=== PATIENT | female | born 1945 | race Caucasian/White ===

== ENCOUNTER 2021-09-13 11:18 | Outpatient (CLI) | payer MEDICARE, SELFPAY ==
[2021-09-13 11:49] LABS: Hematocrit 34.9 % (37.0-47.0); Hemoglobin 10.8 g/dL (12.0-15.0); Mean Corpuscular HGB Conc 30.9 g/dl (32-36); Mean Corpuscular Hemoglobin 32.1 pg (26-34); Mean Corpuscular Volume 103.9 fl (80-100); Mean Platelet Volume 10.6 fl (7.4-10.4); Platelet Count Result 321 k/mm3 (150-375); Red Blood Count 3.36 M/mm3 (4.2-5.4); Red Cell Distribution Width 14.2 % (11.5-14.5); White Blood Count 9.1 K/mm3 (4.5-10.0)
[2021-09-13 12:05] LABS: Alanine Aminotransferase 16 U/L (6-35); Albumin Level 4.1 g/dL (3.5-5.1); Alkaline Phosphatase 53 U/L (38-126); Anion Gap 10 mmol/L (8-16); Aspartate Amino Transferase 25 U/L (14-36); Bilirubin,Total 0.5 mg/dL (0.2-1.3); Blood Urea Nitrogen 26 mg/dL (7-17); CRP 0.9 mg/dL (<1.0); Calcium 8.6 mg/dL (8.4-10.2); Carbon Dioxide 24 mmol/L (22-30); Chloride 101 mmol/L (98-107); Estimated Glomerular Filt Rate > 60; Glucose 106 mg/dL (65-110); Potassium 3.9 mmol/L (3.4-5.0); Sodium 135 mmol/L (137-145)
[2021-09-13 12:21] LABS: Erythrocyte Sedimentation Rate 125 mm/hr (0-20)
== END 2021-09-13 11:19 | disposition home or self-care (01) ==
PROVIDERS: PCP Internal Medicine; Visit Provider Internal Medicine
DX: M06.9 Rheumatoid arthritis, unspecified (principal); M06.09 Rheumatoid arthritis without rheumatoid factor, multiple sites; M19.90 Unspecified osteoarthritis, unspecified site
CPT/HCPCS: 36415; 80053; 85027; 85652; 86140; 99212; G0463

== ENCOUNTER 2021-09-26 12:28 | Outpatient (CLI) | payer MEDICARE, SELFPAY ==
[2021-09-26 14:51] LABS: IFOB Positive Control Positive; Immunochemical Fecal Occult Bl Positive (N)
== END 2021-09-26 12:29 | disposition home or self-care (01) ==
LOC: ANHLAB 12:30
PROVIDERS: PCP Internal Medicine; Visit Provider Internal Medicine
DX: D64.9 Anemia, unspecified (principal)
CPT/HCPCS: 82274

== ENCOUNTER 2022-01-03 11:28 | Outpatient (CLI) | payer MEDICARE, SELFPAY ==
[2022-01-03 12:12] LABS: Hematocrit 31.9 % (37.0-47.0); Hemoglobin 9.9 g/dL (12.0-15.0); Mean Corpuscular Hemoglobin 30.1 pg (26-34); Mean Platelet Volume 10.7 fl (7.4-10.4); Platelet Count Result 190 k/mm3 (150-375); Red Blood Count 3.29 M/mm3 (4.2-5.4); Red Cell Distribution Width 15.8 % (11.5-14.5); White Blood Count 6.6 K/mm3 (4.5-10.0)
[2022-01-03 12:31] LABS: Appearance Urine Clear (Clear); Bilirubin Urine Negative (Negative); Blood Urine 1+ (Negative); Color Urine Yellow (Yellow); Glucose Urine UA Negative (Negative); Ketones Urine Negative (Negative); Leukocyte Esterase Ur 1+ LEU/UL (Negative); Nitrate Urine Negative (Negative); Protein Urine Negative (Negative); Urobilinogen Urine 0.2 mg/dL (<2.0); pH Urine 5.5 (5.0-9.0)
[2022-01-03 12:35] LABS: Alanine Aminotransferase 28 U/L (6-35); Alkaline Phosphatase 58 U/L (38-126); Anion Gap 5 mmol/L (8-16); Aspartate Amino Transferase 36 U/L (14-36); Bilirubin,Total 0.3 mg/dL (0.2-1.3); Blood Urea Nitrogen 19 mg/dL (7-17); Calcium 8.8 mg/dL (8.4-10.2); Carbon Dioxide 25 mmol/L (22-30); Chloride 105 mmol/L (98-107); Estimated Glomerular Filt Rate > 60; Glucose 79 mg/dL (65-110); Potassium 4.3 mmol/L (3.4-5.0); Sodium 135 mmol/L (137-145)
[2022-01-03 12:37] LABS: Bacteria Urine Trace /hpf; Renal Epithelial Cells Urine Rare /hpf (None Seen); Squamous Epithelial Cell Urine Few /hpf (Few)
[2022-01-03 12:38] LABS: Add Urine Microscopic? YES
[2022-01-03 12:42] LABS: CRP 1.1 mg/dL (<1.0)
[2022-01-03 16:06] LABS: Erythrocyte Sedimentation Rate 91 mm/hr (0-20)
== END 2022-01-03 11:29 | disposition home or self-care (01) ==
PROVIDERS: PCP Internal Medicine; Visit Provider Internal Medicine
DX: M06.09 Rheumatoid arthritis without rheumatoid factor, multiple sites (principal); M06.9 Rheumatoid arthritis, unspecified; M19.90 Unspecified osteoarthritis, unspecified site
CPT/HCPCS: 36415; 80053; 81001; 85027; 85652; 86140; 87086; 96365; 96366; 99212; Q5104; A9270; G0463; J7050

== ENCOUNTER 2022-04-02 09:49 | Outpatient (CLI) | payer MEDICARE, SELFPAY ==
--- NOTE | ~2022-04-02 | XR_ITS ---
EXAMINATION: XR chest 2V 04/02/2022 10:17 INDICATION: Elevated sedimentation rate PROCEDURE: 2 view chest COMPARISON: No prior studies for comparison. FINDINGS: The lungs are clear. The cardiomediastinal silhouette is within normal limits. There are no pleural effusions. There is no pneumothorax suspected. 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 Mild thoracic spondylosis. IMPRESSION: 1: NO ACUTE CARDIOPULMONARY DISEASE. Reviewed, dictated and finalized at location B. [facility]
[2022-04-02 10:57] LABS: Hematocrit 28.9 % (37.0-47.0); Mean Corpuscular HGB Conc 31.1 g/dl (32-36); Mean Corpuscular Hemoglobin 30.4 pg (26-34); Mean Corpuscular Volume 97.6 fl (80-100); Mean Platelet Volume 11.4 fl (7.4-10.4); Platelet Count Result 170 k/mm3 (150-375); Red Blood Count 2.96 M/mm3 (4.2-5.4); Red Cell Distribution Width 16.3 % (11.5-14.5); White Blood Count 5.8 K/mm3 (4.5-10.0)
[2022-04-02 11:09] LABS: Alanine Aminotransferase 23 U/L (6-35); Albumin Level 3.9 g/dL (3.5-5.1); Alkaline Phosphatase 68 U/L (38-126); Anion Gap 4 mmol/L (8-16); Aspartate Amino Transferase 29 U/L (14-36); Bilirubin,Total 0.3 mg/dL (0.2-1.3); Blood Urea Nitrogen 20 mg/dL (7-17); CRP 0.7 mg/dL (<1.0); Calcium 8.3 mg/dL (8.4-10.2); Carbon Dioxide 25 mmol/L (22-30); Chloride 107 mmol/L (98-107); Estimated Glomerular Filt Rate > 60; Glucose 99 mg/dL (65-110); Potassium 3.9 mmol/L (3.4-5.0); Sodium 136 mmol/L (137-145)
[2022-04-02 11:19] LABS: Mucus Urine Few /lpf; Squamous Epithelial Cell Urine Many /hpf (Few)
[2022-04-02 11:26] LABS: Appearance Urine Clear (Clear); Bilirubin Urine 1+ (Negative); Blood Urine 1+ (Negative); Color Urine Yellow (Yellow); Glucose Urine UA Negative (Negative); Ketones Urine Trace mg/dL (Negative); Leukocyte Esterase Ur Trace LEU/UL (Negative); Nitrate Urine Negative (Negative); Protein Urine Trace mg/dL (Negative); Urobilinogen Urine 0.2 mg/dL (<2.0); pH Urine 5.5 (5.0-9.0)
[2022-04-02 11:27] LABS: Add Urine Microscopic? YES
[2022-04-02 11:40] LABS: Erythrocyte Sedimentation Rate > 140 mm/hr (0-20)
== END 2022-04-02 09:50 | disposition home or self-care (01) ==
PROVIDERS: PCP Family Medicine; Visit Provider Internal Medicine
DX: M19.90 Unspecified osteoarthritis, unspecified site (principal); R70.0 Elevated erythrocyte sedimentation rate; R31.9 Hematuria, unspecified
CPT/HCPCS: 36415; 71046; 80053; 81001; 85027; 85652; 86140; 99212; G0463

== ENCOUNTER 2022-04-20 08:28 | Outpatient (CLI) | payer MEDICARE, SELFPAY ==
[2022-04-20 08:56] LABS: Basophils Percent Auto 0.5 % (0.2-1.2); Eosinophils Absolute Auto 0.1 K/mm3 (0-0.3); Eosinophils Percent Auto 2.4 % (0-4.4); Hematocrit 30.5 % (37.0-47.0); Hemoglobin 9.4 g/dL (12.0-15.0); Immature Granulocyte Absolute 0.03 K/mm3 (0.00-0.031); Immature Granulocyte Percent A 0.5 % (0-0.5); Lymphocytes Absolute Auto 0.86 K/mm3 (0.9-3.2); Lymphocytes Percent Auto 15.7 % (18.3-44.2); Mean Corpuscular HGB Conc 30.8 g/dl (32-36); Mean Corpuscular Hemoglobin 29.4 pg (26-34); Mean Corpuscular Volume 95.3 fl (80-100); Mean Platelet Volume 10.9 fl (7.4-10.4); Monocytes Absolute Auto 0.8 K/mm3 (0.1-0.6); Neutrophils Absolute Auto 3.7 K/mm3 (1.3-6.7); Neutrophils Percent Auto 66.9 % (45.5-73.1); Platelet Count Result 209 k/mm3 (150-375); Red Cell Distribution Width 15.5 % (11.5-14.5); White Blood Count 5.5 K/mm3 (4.5-10.0)
[2022-04-20 09:11] LABS: Alanine Aminotransferase 25 U/L (6-35); Albumin Level 3.7 g/dL (3.5-5.1); Alkaline Phosphatase 66 U/L (38-126); Anion Gap 5 mmol/L (8-16); Aspartate Amino Transferase 30 U/L (14-36); Bilirubin,Total 0.5 mg/dL (0.2-1.3); Blood Urea Nitrogen 15 mg/dL (7-17); CRP 5.9 mg/dL (<1.0); Calcium 8.1 mg/dL (8.4-10.2); Carbon Dioxide 29 mmol/L (22-30); Chloride 106 mmol/L (98-107); Estimated Glomerular Filt Rate > 60; Glucose 91 mg/dL (65-110); Potassium 3.8 mmol/L (3.4-5.0); Sodium 140 mmol/L (137-145)
[2022-04-20 09:23] LABS: Appearance Urine Clear (Clear); Bacteria Urine None Seen /hpf; Bilirubin Urine Negative (Negative); Blood Urine 1+ (Negative); Color Urine Yellow (Yellow); Glucose Urine UA Negative (Negative); Ketones Urine Negative (Negative); Leukocyte Esterase Ur Negative LEU/UL (Negative); Nitrate Urine Negative (Negative); Non Pathogenic Casts 0-2; Protein Urine Trace mg/dL (Negative); Specific Grav Ur 1.017 (1.001-1.035); Squamous Epithelial Cell Urine Few /hpf (Few); Urobilinogen Urine 0.2 mg/dL (<2.0); WBC Urine 0-5 /hpf
[2022-04-20 10:34] LABS: Add Urine Microscopic? YES
[2022-04-20 11:41] LABS: Erythrocyte Sedimentation Rate > 140 mm/hr (0-20)
== END 2022-04-20 08:29 | disposition home or self-care (01) ==
PROVIDERS: PCP Family Medicine; Visit Provider Internal Medicine
DX: M19.90 Unspecified osteoarthritis, unspecified site (principal); M06.09 Rheumatoid arthritis without rheumatoid factor, multiple sites
CPT/HCPCS: 36415; 80053; 81001; 85025; 85652; 86140

== ENCOUNTER 2022-05-14 11:34 | Outpatient (CLI) | payer MEDICARE, SELFPAY ==
[2022-05-14 12:26] LABS: Basophils Percent Auto 0.6 % (0.2-1.2); Eosinophils Absolute Auto 0.1 K/mm3 (0-0.3); Eosinophils Percent Auto 1.7 % (0-4.4); Hematocrit 31.9 % (37.0-47.0); Hemoglobin 9.5 g/dL (12.0-15.0); Immature Granulocyte Absolute 0.03 K/mm3 (0.00-0.031); Immature Granulocyte Percent A 0.6 % (0-0.5); Lymphocytes Absolute Auto 0.93 K/mm3 (0.9-3.2); Mean Corpuscular HGB Conc 29.8 g/dl (32-36); Mean Corpuscular Volume 94.1 fl (80-100); Mean Platelet Volume 10.3 fl (7.4-10.4); Monocytes Absolute Auto 0.5 K/mm3 (0.1-0.6); Monocytes Percent Auto 10.2 % (2.6-8.5); Neutrophils Absolute Auto 3.6 K/mm3 (1.3-6.7); Neutrophils Percent Auto 68.9 % (45.5-73.1); Platelet Count Result 306 k/mm3 (150-375); Red Blood Count 3.39 M/mm3 (4.2-5.4); Red Cell Distribution Width 15.8 % (11.5-14.5); White Blood Count 5.2 K/mm3 (4.5-10.0)
[2022-05-14 12:33] LABS: Appearance Urine Clear (Clear); Bacteria Urine None Seen /hpf; Bilirubin Urine Negative (Negative); Blood Urine 1+ (Negative); Color Urine Yellow (Yellow); Glucose Urine UA Negative (Negative); Ketones Urine Negative (Negative); Leukocyte Esterase Ur Trace LEU/UL (Negative); Nitrate Urine Negative (Negative); Non Pathogenic Casts 0-2; Protein Urine Trace mg/dL (Negative); Squamous Epithelial Cell Urine Occasional /hpf (Few); Urobilinogen Urine 0.2 mg/dL (<2.0); WBC Urine 0-5 /hpf
[2022-05-14 12:45] LABS: Alanine Aminotransferase 33 U/L (6-35); Albumin Level 3.6 g/dL (3.5-5.1); Alkaline Phosphatase 87 U/L (38-126); Anion Gap 4 mmol/L (8-16); Aspartate Amino Transferase 43 U/L (14-36); Bilirubin,Total 0.5 mg/dL (0.2-1.3); Blood Urea Nitrogen 23 mg/dL (7-17); Calcium 8.6 mg/dL (8.4-10.2); Carbon Dioxide 30 mmol/L (22-30); Chloride 101 mmol/L (98-107); Estimated Glomerular Filt Rate > 60; Glucose 93 mg/dL (65-110); Potassium 4.4 mmol/L (3.4-5.0); Sodium 135 mmol/L (137-145)
[2022-05-14 12:59] LABS: Hypochromasia 1+ (NORMAL)
[2022-05-14 13:01] LABS: Platelet Estimate Adequate (Adequate); Schistocytes None Seen (NORMAL)
[2022-05-14 13:43] LABS: Erythrocyte Sedimentation Rate > 140 mm/hr (0-20)
[2022-05-14 13:49] LABS: Add Urine Microscopic? YES
== END 2022-05-14 11:35 | disposition home or self-care (01) ==
LOC: ANHLAB 11:35
PROVIDERS: PCP Family Medicine; Visit Provider Internal Medicine
DX: M06.9 Rheumatoid arthritis, unspecified (principal); Z79.899 Other long term (current) drug therapy; R31.9 Hematuria, unspecified
CPT/HCPCS: 36415; 80053; 81001; 85025; 85652; 86140

== ENCOUNTER 2022-12-21 10:18 | Outpatient (CLI) | payer MEDICARE, SELFPAY ==
[2022-12-21 11:17] LABS: Hematocrit 37.2 % (37.0-47.0); Mean Corpuscular HGB Conc 29.6 g/dl (32-36); Mean Corpuscular Hemoglobin 31.2 pg (26-34); Mean Corpuscular Volume 105.4 fl (80-100); Mean Platelet Volume 10.4 fl (7.4-10.4); Platelet Count Result 246 k/mm3 (150-375); Red Blood Count 3.53 M/mm3 (4.2-5.4); Red Cell Distribution Width 13.8 % (11.5-14.5); White Blood Count 5.1 K/mm3 (4.5-10.0)
[2022-12-21 11:37] LABS: Alanine Aminotransferase 29 U/L (6-35); Albumin Level 4.4 g/dL (3.5-5.1); Alkaline Phosphatase 73 U/L (38-126); Anion Gap 8 mmol/L (8-16); Aspartate Amino Transferase 36 U/L (14-36); Bilirubin,Total 0.5 mg/dL (0.2-1.3); Blood Urea Nitrogen 14 mg/dL (7-17); CRP < 0.5 mg/dL (<1.0); Calcium 9.2 mg/dL (8.4-10.2); Carbon Dioxide 28 mmol/L (22-30); Chloride 105 mmol/L (98-107); Estimated Glomerular Filt Rate > 60; Glucose 77 mg/dL (65-110); Sodium 141 mmol/L (137-145)
[2022-12-21 12:38] LABS: Appearance Urine Clear (Clear); Bacteria Urine None Seen /hpf; Bilirubin Urine Negative (Negative); Blood Urine Negative (Negative); Color Urine Yellow (Yellow); Glucose Urine UA Negative (Negative); Ketones Urine Negative (Negative); Leukocyte Esterase Ur Trace LEU/UL (Negative); Nitrate Urine Negative (Negative); Non Pathogenic Casts 0-2; Protein Urine Negative (Negative); RBC Urine 0-2 /hpf (0-2); Specific Grav Ur 1.017 (1.001-1.035); Squamous Epithelial Cell Urine Few /hpf (Few); Urobilinogen Urine 0.2 mg/dL (<2.0); WBC Urine 0-5 /hpf; pH Urine 5.5 (5.0-9.0)
[2022-12-21 12:43] LABS: Add Urine Microscopic? YES
[2022-12-21 13:15] LABS: Erythrocyte Sedimentation Rate 77 mm/hr (0-20)
== END 2022-12-21 10:19 | disposition home or self-care (01) ==
PROVIDERS: PCP Family Medicine; Visit Provider Internal Medicine
DX: M06.09 Rheumatoid arthritis without rheumatoid factor, multiple sites (principal); M19.90 Unspecified osteoarthritis, unspecified site
CPT/HCPCS: 36415; 80053; 81001; 85027; 85652; 86140

== ENCOUNTER 2023-01-02 09:40 | Outpatient (CLI) | payer MEDICARE, SELFPAY ==
[2023-01-02 10:50] LABS: Eosinophils Absolute Auto 0.2 K/mm3 (0-0.3); Eosinophils Percent Auto 5.6 % (0-4.4); Hematocrit 37.5 % (37.0-47.0); Hemoglobin 11.2 g/dL (12.0-15.0); Immature Granulocyte Absolute 0.02 K/mm3 (0.00-0.031); Immature Granulocyte Percent A 0.5 % (0-0.5); Lymphocytes Absolute Auto 1.15 K/mm3 (0.9-3.2); Mean Corpuscular HGB Conc 29.9 g/dl (32-36); Mean Corpuscular Volume 103.9 fl (80-100); Mean Platelet Volume 11.5 fl (7.4-10.4); Monocytes Absolute Auto 0.5 K/mm3 (0.1-0.6); Monocytes Percent Auto 13.1 % (2.6-8.5); Neutrophils Absolute Auto 2.1 K/mm3 (1.3-6.7); Neutrophils Percent Auto 51.8 % (45.5-73.1); Platelet Count Result 149 k/mm3 (150-375); Red Blood Count 3.61 M/mm3 (4.2-5.4); Red Cell Distribution Width 13.2 % (11.5-14.5); White Blood Count 4.1 K/mm3 (4.5-10.0)
[2023-01-02 11:07] LABS: Anion Gap 12 mmol/L (8-16); Blood Urea Nitrogen 22 mg/dL (7-17); Calcium 9.3 mg/dL (8.4-10.2); Carbon Dioxide 21 mmol/L (22-30); Chloride 107 mmol/L (98-107); Estimated Glomerular Filt Rate > 60; Glucose 106 mg/dL (65-110); Potassium 3.9 mmol/L (3.4-5.0); Sodium 140 mmol/L (137-145)
[2023-01-02 12:10] LABS: Folic Acid > 20.0 ng/mL (2.76->20); Vitamin B12 > 1000.0 pg/mL (239-931)
== END 2023-01-02 09:41 | disposition home or self-care (01) ==
PROVIDERS: PCP Family Medicine; Visit Provider Internal Medicine Hematology & Oncology
DX: D64.9 Anemia, unspecified (principal)
CPT/HCPCS: 36415; 80048; 82607; 82746; 85025

== ENCOUNTER 2023-08-29 10:10 | Outpatient (CLI) | payer MEDICARE, SELFPAY ==
[2023-08-29 10:46] LABS: Basophils Absolute Auto 0.1 K/mm3 (0.0-0.1); Basophils Percent Auto 0.8 % (0.2-1.2); Eosinophils Absolute Auto 0.5 K/mm3 (0-0.3); Eosinophils Percent Auto 7.6 % (0-4.4); Hematocrit 38.4 % (37.0-47.0); Hemoglobin 12.4 g/dL (12.0-15.0); Immature Granulocyte Absolute 0.02 K/mm3 (0.00-0.031); Immature Granulocyte Percent A 0.3 % (0-0.5); Lymphocytes Absolute Auto 1.46 K/mm3 (0.9-3.2); Lymphocytes Percent Auto 24.5 % (18.3-44.2); Mean Corpuscular HGB Conc 32.3 g/dl (32-36); Mean Corpuscular Hemoglobin 31.8 pg (26-34); Mean Corpuscular Volume 98.5 fl (80-100); Mean Platelet Volume 11.3 fl (7.4-10.4); Monocytes Absolute Auto 0.6 K/mm3 (0.1-0.6); Monocytes Percent Auto 9.9 % (2.6-8.5); Neutrophils Absolute Auto 3.4 K/mm3 (1.3-6.7); Neutrophils Percent Auto 56.9 % (45.5-73.1); Platelet Count Result 171 k/mm3 (150-375); Red Cell Distribution Width 12.4 % (11.5-14.5)
[2023-08-29 11:02] LABS: Transferrin 237 mg/dL (206-381)
[2023-08-29 11:49] LABS: Iron 81 ug/dL (37-170); Percent Iron Saturation 26 % (20-50)
[2023-08-29 12:13] LABS: Folic Acid > 20.0 ng/mL (2.76->20); Vitamin B12 > 1000.0 pg/mL (239-931)
[2023-09-02 06:44] LABS: Methylmalonic Acid 136 nmol/L (69-390)
== END 2023-08-29 10:11 | disposition home or self-care (01) ==
LOC: ANHLAB 10:16
PROVIDERS: PCP Family Medicine; Visit Provider Internal Medicine Hematology & Oncology
DX: D64.9 Anemia, unspecified (principal)
CPT/HCPCS: 36415; 82607; 82728; 82746; 83540; 83550; 83921; 84466; 85025

== ENCOUNTER 2024-03-13 09:17 | Outpatient (CLI) | payer MEDICARE, SELFPAY ==
--- OUTSIDE RECORDS SUMMARY | 2024-03-13 09:36 | XMS_ITS | Encounter Summary ---
Author Organization [facility] Address [address] [place] [address] Care Team Providers Care Speech And Language Clinician Name Role Phone Mary Acuna DO Primary Care Provider [phone] Reason for Visit * Reason Onset Date Comments labs for appt 03/13/2024 Encounter Details Date Type Department Care Team (Late Contact Info) Description 03/13/2024 Telephone [facility] Oncology and Hematology - Tomás [address] [address] [place] [address] Blas Merino MD [address] [place] [address] labs for appt Social History Tobacco Use Types Packs/Day Years Used Date Smoking Tobacco: Never Alcohol Use Standard Drinks/Week Comments Yes 0 (1 standard drink = 0.6 oz pur e alcohol) rare Comments Unknown Sex and Gender Information Value Date Recorded Sex Assigned at Not on file Legal Sex Female 9:46 AM CDT Gender Identity Not on file Sexual Orientation Not on file documented as of this encounter Miscellaneous Notes * Telephone Encounter - Magali Pickett - 03/13/2024 9:17 AM CST LVM for patient. She has a follow up appointment on Saturday and I do not see that she has got her labs done yet. We would need those completed at lease the day prior to the appointment. SSIONS NURSE documented in this encounter Plan of Treatment Upcoming Encounters Date Type Department Care Team (Late Contact Info) Description 03/16/2024 11:45 AM ADMISSIONS NURSE Office Visit [facility] Oncology and Hematology - Tomás [address] [place] [address] Blas Merino MD [address] [place] [address] documented as of this encounter Visit Diagnoses Not on filedocumented in this encounter Care Teams Speech And Language Clinician Relationship Specialty Start Date End Date Mary Acuna DO [address] [place] [address] PCP - General Family Practice 08/16/22 documented as of this encounter
--- OUTSIDE RECORDS SUMMARY | 2024-03-13 09:36 | XMS_ITS | Encounter Summary ---
Author Organization [facility] Address [address] [place] [address] Phone Care Team Providers Care Aircraft Log Clerk Name Role Phone Rahul Mazariegos MD Primary Care Provider [phone] Mary Acuna NP Primary Care Provider [phone] Encounter Details Date Type Department Care Team (Late st Contact Info) Description 08/31/2021 Orders Only [facility] [address] [place] [address] Scanning, Provider Social History Tobacco Use Types Packs/Day Years Used Date Smoking Tobacco: Never Smokeless Tobacco: Never Alcohol Use Standard Drinks/Week Comments Yes 0 (1 standard drink = 0.6 oz pur e alcohol) AUDIT-C Answer Date Recorded Q1: How often do you have a drink containing alc ohol? Never 08/23/2020 Average Number of Drinks Not on file 021 Q3: How often do you have si x or more drinks on one occasion? Never 08/23/2020 PHQ-2 Answer Date Recorded PHQ-2 Total Score (If total score is 3 or more points, staff should administer the PHQ-9) 0 08/24/2021 Comments No Sex and Gender Information Value Date Recorded Sex Assigned at Not on file Legal Sex Female 3:45 PM CDT Gender Identity Female 09/30/2019 10:54 AM CDT Sexual Orientation Straight 09/30/2019 10 :54 AM CDT documented as of this encounter Plan of Treatment Not on file documented as of this encounter Procedures Procedure Name Priority Date/Time Associated Diagnosis Comments SCAN - LABS 08/31/2021 documented in this encounter Results * SCAN - LABS (08/31/2021) us Provider Scanning Final Result documented in this encounter Visit Diagnoses Not on filedocumented in this encounter Additional Health Concerns Infection Onset Date Last Indicated Resolved Time COVID: Suspected 05/03/2022 05/03/2022 05/03/2022 11:49 AM CDT documented as of this encounter Care Teams Aircraft Log Clerk Relationship Specialty Start Date End Date Rahul Mazariegos MD PCP - General Family Medicine 08/23/20 04/23/22 Mary Acuna NP [address] [place] [id number] PCP - General Family Practice 04/24/22 documented as of this encounter
--- OUTSIDE RECORDS SUMMARY | 2024-03-13 09:36 | XMS_ITS | Clinical Summary ---
Author Organization [facility] Address [address] [place] [address]. 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 Gender Identity Not on file Sexual Orientation Not on file Plan of Treatment Health Maintenance Due Date Last Done Comments Hepatitis C 02/18/1962 DTaP, Tdap and Td Vaccines ( 1 - Tdap) 02/18/1963 Zoster Vaccines (1 of 2) 02/18/1994 Dexa Scan (General) 02/18/2009 RSV Immunization or 60+ Years (1 - 1-dose 75+ series) 02/18/2019 COVID-19 Vaccine ( - 2023-2 5 season) 2023 07/13/2021, 04/15/2020, 03/14/2020 Influenza Adult (#1) 2023 11/11/2021, 12/03/2019, 01/01/2019 Pneumococcal Vaccine: 65+ Years Completed 08/23/2020, 08/18/2019 Meningococcal B Vaccine Aged Out No l onger eligible based on patient's age to complete this topic Meningococcal Vaccine Aged Out No peace gordon eligible based on patient's age to complete this topic RSV Immunizations Under 20 Months Aged Out No longer eligible b ased on patient's age to complete this topic
--- OUTSIDE RECORDS SUMMARY | 2024-03-13 09:36 | XMS_ITS | Referral Summary ---
[facility] Address [address] [place] [address] Care Team Providers Care Wheat Grower Name Role Phone Mary Acuna NP Primary Care Provider [phone] Encounters Date Type Department Care Team Description 12/16/2023 1:50 PM METAL BASE BLOCKER - 12/16/2023 11:59 PM METAL BASE BLOCKER Hospital Encounter [facility] [facility] [address] [place] [id number] Abnormal mammogram Discharge Disposition: Discharge to home or self care from Last 3 Months Allergies Active Allergy Reactions Criticality Noted Date Comments Codeine Itching,Stomach upset Low 08/31/2019 Medications ferrous sulfate 325 mg (65 mg of elemental iron) tabletIndications:Iron Deficiency Anemia Take 1 tablet (325 mg total) by mouth daily with breakfast 019 Active Additional Information Patient taking differently: 130 mg of elemental ironoral Daily with breakfast, Indications: Iron Deficiency Anemia, Reported on 05/30/2022 ibandronate (BONIVA) 150 mg tablet Take 1 tablet (150 mg total) by mouth every 30 (thirty) days Take in AM with glass of water prior to food, don't lie down for 30 minutes. Active pyridoxine (VITAMIN B-6) 100 mg tablet Take 1 tablet (100 mg total) by mouth daily Active acetaminophen ER (TYLENOL) 650 mg 8 hr tablet Take 2 tablets (1,300 mg total) by mouth daily Active cholecalciferol (VITAMIN D-3) 25 mcg (1,000 unit) tablet Take 1 tablet (1,000 Units total) by mouth daily Active aspirin 81 mg chewable tablet Take 1 tablet (81 mg total) by mouth daily Active folic acid (FOLVITE) 1 mg tablet Take 1 tablet (1,000 mcg total) by mouth daily 022 Active leflunomide (ARAVA) 20 mg tabletIndications:Rheum atoid Arthritis Take 1 tablet (20 mg total) by mouth daily Active cyanocobalamin (Vitamin B-12) 1,000 mcg tabletIndications:Preve ntion of Vitamin B12 Deficiency Take 1 tablet (1,000 mcg total) by mouth daily Active lidocaine (LIDODERM) 5 %Indications:Pain Place 1 patch on the skin daily Use patch for 12 hours on, 12 hours off. Discard after each use 7 patch 024 Active losartan (COZAAR) 25 mg tabletIndications:Mixed dyslipidemia,Coronary artery disease involving [place] coronary artery of [place] heart without angina pectoris,Essential hypertension Take 1 tablet (25 mg total) by mouth daily 90 tablet 2 024 Active spironolactone (ALDACTONE) 25 mg tablet TAKE 1 TABLET BY MOUTH DAILY 90 tablet 3 024 Active metoprolol XL (TOPROL-XL) 25 mg extended release tablet Take 1 tablet (25 mg total) by mouth daily 90 tablet [address] (PROTONIX) 40 mg EC tablet TAKE 1 TABLET BY MOUTH DAILY 90 tablet 3 024 Active Xarelto 20 mg tablet TAKE 1 TABLET BY MOUTH DAILY 90 tablet 3 024 Active atorvastatin (LIPITOR) 40 mg tabletIndications:Pure hypercholesterolemia TAKE 1 TABLET BY MOUTH DAILY 90 tablet 3 024 Active Active Problems Problem Noted Date Diagnosed Date Chronic kidney disease, stage 2 (mild) 3 Assessment & Plan (10/21/2023 11:38 AM CDT): Chronic, stable Previously seen by nephrology, released from care Will monitor for stability Assessment & Plan (11/02/2022 12:07 PM CDT): Chronic, stable Encouraged to follow-up with nephrology as recommended Weakness of right lower extremity 09/14/2022 Assessment & Plan (10/21/2023 11:30 AM CDT): Chronic, improved with therapy, released 10/19/22, doing home exercises Encouraged to continue home exercises Assessment & Plan (11/02/2022 12:04 PM CDT): Acute, improved with therapy, released 10/19/22, doing home exercises Encouraged to continue home exercises Assessment & Plan (09/14/2022 3:25 PM CDT): New diagnosis Encouraged to continue physical therapy for strengthening History of non-ST elevation myocardial infarctio n (NSTEMI) 05/30/2022 Assessment & Plan (10/21/2023 11:36 AM CDT): Encouraged to follow up with cardiology as recommended History of colon polyps 04/27/2022 Assessment & Plan (04/27/2022 10:29 AM CDT): Referral made for consideration of screening colonoscopy due to history of polyps and anemia. Encounter for screening mamm ogram for malignant neoplasm of breast 04/27/2022 Assessment & Plan (04/27/2022 10:29 AM CDT): Ordered screening mammogram. Anemia, unspecified 04/27/2022 Assessment & Plan (10/21/2023 11:39 AM CDT): Chronic, stable, on iron supplement Continued on ferrous sulfate and folic acid Assessment & Plan (11/02/2022 12:08 PM CDT): Chronic, with improvement in hemoglobin/hematocrit Continued on ferrous sulfate and folic acid Assessment & Plan (04/27/2022 10:52 AM CDT): Chronic, improved Hgb/Hct compared to 4 months prior, on iron supplement, 2 daily-continued on iron supplement. Ordered iron profile, ferritin level, B12 level, and folate level. Coronary artery disease invo lving [place] coronary artery of [place] heart without angina pectoris 04/26/2022 Assessment & Plan (10/21/2023 11:38 AM CDT): Chronic, stability unknown Continued on aspirin, metoprolol, Xarelto, atorvastatin, and spironolactone per Cardiology Assessment & Plan (11/02/2022 12:07 PM CDT): Chronic, stability unknown Continued on aspirin, metoprolol, Xarelto, atorvastatin, and spironolactone per Cardiology Atrial fibrillation with rap id ventricular response ([facility]) 02/18/2020 Assessment & Plan (10/21/2023 11:39 AM CDT): Chronic, stability unknown Continued on metoprolol and Xarelto per Cardiology Assessment & Plan (11/02/2022 12:08 PM CDT): Chronic, stability unknown Continued on metoprolol and Xarelto per Cardiology Assessment & Plan (02/18/2020 11:15 AM METAL BASE BLOCKER): Overall Condition Stable and Well-controlled. Treatment: Continue Present Management Follow up in 6 months Gastroesophageal reflux disease with stricture 0 02/18/2020 Assessment & Plan (10/21/2023 11:36 AM CDT): Chronic, stable, controlled with medication Continued pantoprazole Assessment & Plan (11/02/2022 12:06 PM CDT): Chronic, stable, controlled with medication Continued pantoprazole Assessment & Plan (02/18/2020 11:15 AM METAL BASE BLOCKER): Overall Condition Stable and Well-controlled. Treatment: Continue Present Management Follow up in 6 months Mixed dyslipidemia 02/18/2020 Assessment & Plan (10/21/2023 11:35 AM CDT): Chronic, stable, controlled on medication Continued on atorvastatin per Dr. Newton Assessment & Plan (11/02/2022 12:05 PM CDT): Chronic, stable, controlled on medication Continued on atorvastatin per Dr. Hernandez Assessment & Plan (02/18/2020 11:16 AM METAL BASE BLOCKER): Overall Condition Stable and Well-controlled. Treatment: Continue Present Management Follow up in 6 months Multiple nodules of lung 02/18/2020 Assessment & Plan (10/21/2023 11:34 AM CDT): Chronicity and stability unknown Declined CT chest again today Assessment & Plan (05/08/2023 12:31 PM CDT): Chronicity and stability unknown Declined CT chest again today Assessment & Plan (11/02/2022 12:05 PM CDT): Chronicity and stability unknown Declined CT chest today Medicare annual wellness visit, subsequent 07/24 Assessment & Plan (10/21/2023 11:35 AM CDT): Reviewed past and current medical history, surgical history, social history, family history, current medications, and allergies. The chart was updated to identify any changes in these areas. A ROS and PE were performed. Discussed and recommended immunizations. Patient will follow-up in six-month for further evaluation and management or sooner if needed. Assessment & Plan (11/02/2022 12:06 PM CDT): Reviewed past and current medical history, surgical history, social history, family history, current medications, and allergies. The chart was updated to identify any changes in these areas. A ROS and PE were performed. Medications and labs were ordered and referrals were made. Discussed and recommended immunizations. Patient will follow-up in six-month for further evaluation and management or sooner if needed. Assessment & Plan (08/24/2021 11:07 AM CDT): Patient here for annual Medicare wellness visit and for review of complete medical problem list. All the elements of the plan were completed as outlined by CMS. A copy of the prevention plan was given to the patient. I reviewed Medicare Wellness Questionnaire (other physicians involved in care, depression screen, advanced directives), cognitive/memory, and functional assessment. Forms scanned in progress notes. I reviewed and updated the complete problem list, medication list, family history, and immunization records with the patient. I provided preventive counseling and early detection interventions to the patient through health maintenance update and summary of today's office visit. Personalized Prevention Plan Services (PPPS): Immunization: [id number]: order today 08/23/20 [id number]: 08/18/19 Influenza: UTD. HepatitisB: Not Applicable. Tetanus: UTD. Shingles: UTD. Cancer Screening: Mammogram: UTD PAP Smear: Not Applicable. Prostate Cancer Screening: Not Applicable. Colorectal Cancer Screening: Performed on 5 years ago . and Next Due: repeat in 10 years . Lung Cancer Screening: Not Applicable. Others: Diet: Lifestyle education regarding diet discussed. Exercise: Encouraged regular daily exercise. Medication Use: Aspirin use discussion. DEXA Scan: 2019 Glaucoma Screening: Recommended Annually. Audio Screen ordered? No Diabetes: Not Applicable. Annual Labs: UTD 04/2021 Abdominal Aortic Aneurysm Screening: Not Applicable. HIV Screening: Not Applicable. Smoking cessation Counselling: Not Applicable. Subsequent Annual Wellness Visit: Annually Assessment & Plan (08/23/2020 1:10 PM CDT): Patient here for annual Medicare wellness visit and for review of complete medical problem list. All the elements of the plan were completed as outlined by CMS. A copy of the prevention plan was given to the patient. I reviewed Medicare Wellness Questionnaire (other physicians involved in care, depression screen, advanced directives), cognitive/memory, and functional assessment. Forms scanned in progress notes. I reviewed and updated the complete problem list, medication list, family history, and immunization records with the patient. I provided preventive counseling and early detection interventions to the patient through health maintenance update and summary of today's office visit. Personalized Prevention Plan Services (PPPS): Immunization: [id number]: order today 08/23/20 [id number]: 08/18/19 Influenza: UTD. HepatitisB: Not Applicable. Tetanus: UTD. Shingles: UTD. Cancer Screening: Mammogram: UTD PAP Smear: Not Applicable. Prostate Cancer Screening: Not Applicable. Colorectal Cancer Screening: Performed on 4 years ago . and Next Due: repeat in 10 years . Lung Cancer Screening: Not Applicable. Others: Diet: Lifestyle education regarding diet discussed. Exercise: Encouraged regular daily exercise. Medication Use: Aspirin use discussion. DEXA Scan: 2019 Glaucoma Screening: Recommended Annually. Audio Screen ordered? No Diabetes: Not Applicable. Annual Labs: UTD 06/2020 Abdominal Aortic Aneurysm Screening: Not Applicable. HIV Screening: Not Applicable. Smoking cessation Counselling: Not Applicable. Subsequent Annual Wellness Visit: Annually Assessment & Plan (08/18/2019 8:54 AM CDT): Patient here for annual Medicare wellness visit and for review of complete medical problem list. All the elements of the plan were completed as outlined by CMS. A copy of the prevention plan was given to the patient. I reviewed Medicare Wellness Questionnaire (other physicians involved in care, depression screen, advanced directives), cognitive/memory, and functional assessment. Forms scanned in progress notes. I reviewed and updated the complete problem list, medication list, family history, and immunization records with the patient. I provided preventive counseling and early detection interventions to the patient through health maintenance update and summary of today's office visit. Personalized Prevention Plan Services (PPPS): Immunization: [id number]: post 08/17/20 [id number]: order for today. Influenza: UTD. HepatitisB: Not Applicable. Tetanus: UTD. Shingles: UTD. Cancer Screening: Mammogram: Ordered For Today. PAP Smear: Not Applicable. Prostate Cancer Screening: Not Applicable. Colorectal Cancer Screening: Performed on 4 years ago . and Next Due: repeat in 10 years . Lung Cancer Screening: Not Applicable. Others: Diet: Lifestyle education regarding diet discussed. Exercise: Encouraged regular daily exercise. Medication Use: Aspirin use discussion. DEXA Scan: Last on 2017. Order for today. Glaucoma Screening: Recommended Annually. Audio Screen ordered? No Diabetes: Not Applicable. Annual Labs: Ordered For Today. Abdominal Aortic Aneurysm Screening: Not Applicable. HIV Screening: Not Applicable. Smoking cessation Counselling: Not Applicable. Subsequent Annual Wellness Visit: Annually Assessment & Plan (07/24/2018 1:32 PM CDT): Patient here for annual Medicare wellness visit and for review of complete medical problem list. All the elements of the plan were completed as outlined by CMS. A copy of the prevention plan was given to the patient. I reviewed Medicare Wellness Questionnaire (other physicians involved in care, depression screen, advanced directives), cognitive/memory, and functional assessment. Forms scanned in progress notes. I reviewed and updated the complete problem list, medication list, family history, and immunization records with the patient. I provided preventive counseling and early detection interventions to the patient through health maintenance update and summary of today's office visit. Personalized Prevention Plan Services (PPPS): Immunization: [id number]: Awaiting Records . [id number]: Awatiting Records . Influenza: UTD. HepatitisB: Not Applicable. Tetanus: UTD. Shingles: UTD. Cancer Screening: Mammogram: Performed on about a year ago . and Ordered For Today. PAP Smear: Not Applicable. Prostate Cancer Screening: Not Applicable. Colorectal Cancer Screening: Performed on 3 years ago . and Next Due: repeat in 10 years . Lung Cancer Screening: Not Applicable. Others: Diet: Lifestyle education regarding diet discussed. Exercise: Encouraged regular daily exercise. Medication Use: Aspirin use discussion. DEXA Scan: Performed on 2017 . and Next Due: 2019 . Glaucoma Screening: Recommended Annually. Audio Screen ordered? No Diabetes: Not Applicable. Annual Labs: Ordered For Today. Abdominal Aortic Aneurysm Screening: Not Applicable. HIV Screening: Not Applicable. Smoking cessation Counselling: Not Applicable. Subsequent Annual Wellness Visit: Annually Osteopenia 07/24/2018 Assessment & Plan (10/21/2023 11:34 AM CDT): Chronic, stable Continued on Boniva and vitamin-D supplement Will monitor for stability Assessment & Plan (11/02/2022 12:05 PM CDT): Chronic, stability unknown Continued on Boniva and vitamin-D supplement Bone density test scheduled for November 2022 Assessment & Plan (06/11/2022 2:37 PM CDT): Chronic, stability unknown-ordered bone density test. Assessment & Plan (02/18/2020 11:15 AM METAL BASE BLOCKER): Overall Condition Stable and Well-controlled. Treatment: Continue Present Management Follow up in 6 months Overweight (BMI 25.0-29.9) 07/24/2018 Assessment & Plan (10/21/2023 11:33 AM CDT): Chronic, stable Encouraged to monitor daily caloric intake and portion sizes and to exercise most days of the week, for a goal of at least 150 minutes of exercise per week Assessment & Plan (11/02/2022 12:04 PM CDT): Chronic, stable Encouraged to monitor daily caloric intake and portion sizes and to exercise most days of the week, for a goal of at least 150 minutes of exercise per week Assessment & Plan (02/18/2020 11:16 AM METAL BASE BLOCKER): Recommended aggressive Lifestyle modification and weight loss for improving overall weight related health conditions. Follow up in 1 or 3 months for continuing Lifestyle Medicine education and management visit. Assessment & Plan (07/24/2018 1:42 PM CDT): Obesity is improving with lifestyle modifications. Discussed the patient's BMI. The BMI is above average; BMI management plan is completed. General weight loss/lifestyle modification strategies discussed (elicit support from others; identify saboteurs; non-food rewards, etc). 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 ([facility]) 07/24/2018 Assessment & Plan (10/21/2023 11:33 AM CDT): Chronic, stability unknown, affecting both hands Continued on Arava and folic acid per Rheumatology Encouraged to follow-up with Rheumatology as recommended Assessment & Plan (11/02/2022 12:04 PM CDT): Chronic, stability unknown, affecting both hands Continued on Arava, sulfasalazine, and folic acid per Rheumatology Encouraged to follow-up with Rheumatology as recommended Resolved Problems Problem Noted Date Diagnosed Date Resolved Date Left buttock pain 05/06/2023 10/21/2023 Assessment & Plan (05/08/2023 12:30 PM CDT): Acute, improved Started on a prednisone taper as directed last week Advised can use topical analgesics such as Kalyan-Gillespie, Biofreeze, and/or lidocaine patches Informed can alternate heat with cold, applying for 15 minutes per application, but not directly to skin Encouraged to return to clinic if symptoms do not resolve, ER for new or worsening symptoms Assessment & Plan (05/06/2023 6:24 AM CDT): Acute Started on a prednisone taper as directed Advised can use topical analgesics such as Kalyan-Gillespie, Biofreeze, and/or lidocaine patches Informed can alternate heat with cold, applying for 15 minutes per application, but not directly to skin Encouraged to return to clinic if symptoms do not resolve, ER for new or worsening symptoms Elevated liver enzymes 11/02/202210/20 Assessment & Plan (11/02/2022 12:06 PM CDT): New diagnosis in 05/2022 Encouraged to get CMP done, ordered by Cardiology Elevated blood pressure reading 06/11/2022 11/01/2022 Assessment & Plan (06/11/2022 2:40 PM CDT): Elevated blood pressure reading-encouraged to go home, relax, and check blood pressure, notifying office reading result (blood pressure recently normal when seen by general maintenance engineer on 05/30/2022, great granddaughter recently , became emotional during visit). Upper back pain on left side 06/11/2022 10/21/2023 Assessment & Plan (05/08/2023 12:30 PM CDT): Acute, improved Started on a prednisone taper as directed Advised can use topical analgesics such as Kalyan-Gillespie, Biofreeze, and/or lidocaine patches Informed can alternate heat with cold, applying for 15 minutes per application, but not directly to skin Encouraged to return to clinic if symptoms do not resolve, ER for new or worsening symptoms Assessment & Plan (05/06/2023 6:24 AM CDT): Acute Started on a prednisone taper as directed Advised can use topical analgesics such as Kalyan-Gillespie, Biofreeze, and/or lidocaine patches Informed can alternate heat with cold, applying for 15 minutes per application, but not directly to skin Encouraged to return to clinic if symptoms do not resolve, ER for new or worsening symptoms Assessment & Plan (09/14/2022 3:24 PM CDT): Resolved with physical therapy Assessment & Plan (06/22/2022 12:09 PM CDT): Acute, uncontrolled-started on gabapentin 100 mg capsule 1 at bedtime tonight, informed can increase to twice daily tomorrow. Instructed to call office with update. Encouraged to finish prednisone and stop cyclobenzaprine. Instructed to go to ER for worsening pain or new symptoms, including but not limited to numbness in the perineal area and/or loss of bowel/bladder control. Assessment & Plan (06/11/2022 2:39 PM CDT): Acute-started on prednisone 20 mg once daily x5 days. Informed can continue to take cyclobenzaprine as directed as needed HS if perceived benefit. Night sweats 05/04/2022 11/01/2022 Assessment & Plan (05/04/2022 3:41 PM CDT): Recent onset, 2 episodes, with last episode 3 days ago-ordered chest x-ray, CBC, TSH level, and sed rate. Dizziness 04/27/2022 11/01/2022 Assessment & Plan (04/27/2022 10:53 AM CDT): Acute episode, evaluated in ER, diagnosed with orthostatic hypotension- encouraged to stay hydrated and to change position slowly when going from a lying to sitting and especially sitting to standing. Adhesive capsulitis of right shoulder 10/23/2021 11/01/2022 Assessment & Plan (10/23/2021 11:25 AM CDT): Overall Condition Chronic Condition: Uncontrolled. Treatment: New Medication: Flexeril and Referral: PT Follow up in 6 months Herpes zoster without complication 08/04/2021 11/01/2022 Moderate episode of recurren t major depressive disorder 08/04/2021 11/01/2022 Assessment & Plan (08/04/2021 9:37 AM CDT): Overall Condition Chronic Condition: Uncontrolled and New Diagnosis. Treatment: New Medication: Lexapro and Referral: Grief counselling Follow up in 1 month Acute pain of right shoulder 05/20/2021 11/01/2022 Assessment & Plan (05/20/2021 7:57 AM CDT): Acute-advised to finish prednisone twice daily and take methocarbamol as directed as needed. Informed can use Tylenol as directed as needed for additional pain control. Recommended dfdollow-up with PCP if symptoms do not resolve with treatment. 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 11/01/2022 Immunizations Name Administration Dates Next Due Influenza, Quad, Adjuvantate d, Intramuscular 12/16/2020 Influenza, Quadrivalent, Hig h Dose, Preservative Free, Intrr 11/01/2022,10/18/2021,12/03/2019 Influenza, Trivalent, High D ose, Split, Preservative Free, Intramuscular 10/21/2023,01/01/2019 Influenza, Unspecified 11/11/2021 Moderna SARS-CoV-2 Monovalen t Vaccination (12+ YRS) 07/13/2021,03/17/2020 Pneumococcal Conjugate PCV 13 08/18/2019 Pneumococcal Polysaccharide PPV23 08/23/2020 Social History Tobacco Use Types Packs/Day Years Used Date Smoking Tobacco: Never Smokeless Tobacco: Never Tobacco Cessation:Counseling Given: Not Answered Alcohol Use Standard Drinks/Week Comments Yes 0 (1 standard drink = 0.6 oz pur e alcohol) AUDIT-C Answer Date Recorded Q1: How often do you have a drink containing alc ohol? Never 04/24/2022 Average Number of Drinks Not on file 023 Frequency of Binge Drinking Not on file 04/11 PHQ-2 Answer Date Recorded PHQ-2 Total Score (If total score is 3 or more points, staff should administer the PHQ-9) 0 10/21/2023 Personal Safety Answer Date Recorded Have you ever been in or are you currently in a harmful physical or emotional relationship or is someone making you feel afraid or unsafe? Denies 06/09/2023 Comments No Sex and Gender Information Value Date Recorded Sex Assigned at Not on file Legal Sex Female 3:45 PM CDT Gender Identity Female 09/30/2019 10:54 AM CDT Sexual Orientation Straight 09/30/2019 10 :54 AM CDT Last Filed Vital Signs Vital Sign Reading Time Taken Comments Blood Pressure 128/74 10/21/2023 11:47 AM CDT Pulse 75 10/21/2023 11:05 AM CDT Temperature 36.4 ??C (97.6 ??F) 10/21/2023 11:05 AM C DT Respiratory Rate 14 10/21/2023 11:05 AM CDT Oxygen Saturation 95% 10/21/2023 11:05 AM CDT Inhaled Oxygen Concentration - - Weight 68.2 kg (150 lb 4.8 oz) 10/21/2023 11:05 AM CDT Height 153 cm (5' 0.24 ) 10/21/2023 11:05 AM CDT Body Mass Index 29.12 10/21/2023 11:05 AM CDT Plan of Treatment Not on file Procedures Procedure Name Priority Date/Time Associated Diagnosis Comments DIAGNOSTIC MAMMOGRAM RIGHT W KIRK Schedule Routine, Read Routine (OP Routine) 12/16/2023 2:05 PM METAL BASE BLOCKER Abnormal mammogram DEXA AXIAL SKELETON BONE DENSITY 1 OR MORE SITES Schedule Routine, Read Routine (OP Routine) 11/19/2022 1:09 PM CDT Osteopenia of right hip COLONOSCOPY Routine 10/01/2019 from Last 3 Months or Most Recently Relevant to Health Maintenance Results * Diagnostic Mammogram Right W Kirk (12/16/2023 2:05 PM METAL BASE BLOCKER) Anatomical Region Laterality Modality Breast Right Mammography 12/16/2023 2:09 PM METAL BASE BLOCKER Narrative 12/16/2023 2:12 PM METAL BASE BLOCKER EXAM DESCRIPTION: DIAGNOSTIC MAMMOGRAM RIGHT W KIRK REASON FOR STUDY: 78-year-old female recalled from screening mammogram for a right breast asymmetry. TECHNIQUE: Full field LM view and spot compression MLO view of the right breast were obtained with digital technique using breast tomosynthesis with C view. ?? COMPARISON: 12/02/2023, 11/19/2022, 11/18/2019 FINDINGS: DENSITY: There are scattered areas of fibroglandular density. MAMMOGRAM FINDINGS: The asymmetry of concern in the anterior upper right breast on the MLO view effaces with spot compression, evidence of benign dense fibroglandular tissue. ??There is no new suspicious finding in the right breast on mammogram. IMPRESSION: 1. ?? The anterior upper right breast asymmetry of concern on screening mammogram represents benign dense tissue. 2. ?? No suspicious finding in the right breast on mammogram. ??Screening mammogram in 1 year is recommended. BIRADS: 1 ??Negative The patient was notified of these findings and recommendations at the time of the examination. THIS IS AN ELECTRONICALLY VERIFIED FINAL REPORT 12/16/2023 2:12 PM - Electronically signed by ??Kendall Hooper M.D., MD: D: ??12/16/2023 2:12 PM T: ??12/16/2023 2:12 PM Report ID: [id number] Reading Location: ??MAMMMHE us Mary Acuna NP IMG MAMMO PROCEDURES Final Resul t * Dexa Axial Skeleton Bone Density 1 or 2 Site (11/19/2022 1:09 PM CDT) Anatomical Region Laterality Modality Body N/A Mammography 11/20/2022 5:15 AM CDT Narrative 11/20/2022 5:17 AM CDT EXAM DESCRIPTION: DEXA AXIAL SKELETON BONE DENSITY 1 OR MORE SITES REASON FOR STUDY: 77 y/o ?? year old ??F ??with given history of: ??osteopenia left hip/femoral neck. ??Postmenopausal status. ??Patient has a history of rheumatoid arthritis. ??Patient has taken/is taking Boniva, vitamin-D and calcium. ? 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 Maximum height: ??62 ??inches ? Weight: ??145.3 ??pounds Risk factors: ??Rheumatoid arthritis COMPARISON: 11/18/2019 FINDINGS: AP LUMBAR SPINE L1-L4: Total BMD is 1.243 g/cm2 T-score is 1.8 This is a 6.6% increase in comparison to prior exam which is statistically significant. LEFT HIP: Total BMD is 0.702 g/cm2 T-score is -2.0 This is a 3% increase in comparison to prior exam which is not statistically significant. Femoral neck BMD is 0.672 g/cm2 T-score is -1.6 ?? FRAX: 10 year risk for a major osteoporotic fracture is 17 %, 10 year risk for a hip fracture is 4.6 % IMPRESSION: Low bone mass REFERENCE: Bone mineral density: ? Normal (T-score above or = -1.0) ? Low bone mass ??(T-score between -1.0 and -2.5) replaces the previously used term osteopenia ? Osteoporosis (T-score = or below -2.5) Medical evaluation for secondary causes of low bone mineral density may be appropriate. FRAX is a World Health Organization validated fracture risk assessment tool that calculates a person's 10 year probability of a major osteoporosis related fracture and hip fracture. ??According to the National Osteoporosis Foundation guidelines, postmenopausal women and men age 50 or older with low bone mass and a 10 year probability of a major osteoporosis related fracture = or greater than 20% or a 10 year probability of a hip fracture = or greater than 3% should be considered for treatment. For further information, including treatment recommendations, please refer to the 2019 ISCD Official Positions (http://www.iscd.org) and the NOF's Clinician's Guide to Prevention and Treatment of Osteoporosis (http://www.nof.org/professionals/clinical-guidelines) THIS IS AN ELECTRONICALLY VERIFIED FINAL REPORT 11/20/2022 5:17 AM - Electronically signed by ??Damaris Schneider M.D. TW: TASHA D: ??11/20/2022 5:17 AM T: ??11/20/2022 5:17 AM Report ID: [id number] Reading Location: ??[id number] Procedure Note Damaris Schneider MD - 11/20/2022 EXAM DESCRIPTION: DEXA AXIAL SKELETON BONE DENSITY 1 OR MORE SITES REASON FOR STUDY: 77 y/o year old F with given history of: osteopenia left hip/femoral neck. Postmenopausal status. Patient has a history of rheumatoid arthritis. Patient has taken/is taking Boniva, vitamin-D and calcium. 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 LEFT HIP: Total BMD is 0.702 g/cm2 T-score is -2.0 This is a 3% increase in comparison to prior exam which is notstatistically significant. Femoral neck BMD is 0.672 g/cm2 T-score is -1.6 FRAX: 10 year risk for a major osteoporotic fracture is 17 %, 10 year risk for ahip fracture is 4.6 % IMPRESSION: Low bone mass REFERENCE: Bone mineral density: Normal (T-score above or = -1.0) Low bone mass (T-score between -1.0 and -2.5) replaces thepreviously used term osteopenia Osteoporosis (T-score = or below -2.5) Medical evaluation for secondary causes of low bone mineral density may be appropriate. FRAX is a World Health Organization validated fracture risk assessmenttool that calculates a person's 10 year probability of a major osteoporosisrelated fracture and hip fracture. According to the National OsteoporosisFoundation guidelines, postmenopausal women and men age 50 or older with low bonemass and a 10 year probability of a major osteoporosis related fracture = or greater than 20% or a 10 year probability of a hip fracture = or greaterthan 3% should be considered for treatment. For further information, including treatment recommendations, please referto the 2019 ISCD Official Positions (http://www.iscd.org) and the NOF's Clinician's Guide to Prevention and Treatment of Osteoporosis (http://www.nof.org/professionals/clinical-guidelines) THIS IS AN ELECTRONICALLY VERIFIED FINAL REPORT 11/20/2022 5:17 AM - Electronically signed by Damaris Schneider M.D. TW: TASHA Report ID: [id number] Reading Location: [place] [address] Mary Acuna WORK ORDER SORTING CLERK IMG DXA PROCEDURES Final Result * Colonoscopy (10/01/2019) Anatomical Region Laterality Modality Other us Historical Provider ENDOSCOPY PROCEDURES Phylicia l Result from Last 3 Months or Most Recently Relevant to Health Maintenance [place] [address] MEDICARE [facility] MEDICARE SUPPLEMENT Member Subscriber Plan / Payer (Ef fective 2019-Present) Name:Sloane Pal Relation to Subscriber:Self Name:Sloane Pal Payer ID:[id number] Group ID:[id number] Type:COMMERCIAL Address: [address] [place] [id number] Care Teams Wheat Grower Relationship Specialty Start Date End Date Mary Acuna NP [address] [place] [address] PCP - General Family Practice 04/24/22
--- OUTSIDE RECORDS SUMMARY | 2024-03-13 09:36 | XMS_ITS | Clinical Summary ---
[facility] Organization [facility] Address [address] [facility] [place] [address] Care Team Providers Care Fiberglass Roller Name Role Phone Mary Acuna DO Primary Care Provider [phone] Allergies Active Allergy Reactions Criticality Noted Date Comments Codeine Itching,Rash Low 08/31/2019 Medications atorvastatin (LIPITOR) 40 mg tablet Take 40 mg by mouth daily. 02/16/2022 Active pantoprazole (PROTONIX) 40 mg Tablet, Delayed Release (E.C.) Take 40 mg by mouth daily. 02/16/2022 Active cholecalciferol, vitamin D3, 1,000 unit Take 1,000 Units by mouth daily. Active losartan (COZAAR) 25 mg tablet Take 25 mg by mouth daily. 02/16/2022 Active sulfaSALAzine (AZULFIDINE) 500 mg tablet 500 mg. 05/24/2022 Active calcium as carbonate (CALTRATE) 1,500 mg (600 mg elemental) Tablet Take 600 mg by mouth. Active ferrous sulfate 325 mg (65 mg iron) tablet Take 325 mg by mouth daily. Active amiodarone (CORDARONE) 200 mg tablet Take 200 mg by mouth daily. Active metoprolol tartrate (LOPRESSOR) 50 mg tablet Take 50 mg by mouth 2 times daily. Active pyridoxine (VITAMIN B6) 100 mg Tablet Take 50 mg by mouth daily. Active acetaminophen (TYLENOL ARTHRITIS) 650 mg Extended Release tablet Take 650 mg by mouth every 6 hours as needed for Pain. Active rivaroxaban (XARELTO) 20 mg Tablet Take 20 mg by mouth daily with supper. Active ibandronate (BONIVA) 150 mg tablet Take 150 mg by mouth every 30 days. Active Active Problems No known active problems Encounters Date Type Department Care Team Description 03/13/2024 Telephone [facility] Oncology and Hematology - Tom[address] [place] [address] Blas Merino MD labs for appt 03/11/2024 External Device Data STL ABSTRACTION Provider, Abstract 03/05/2024 External Device Data STL ABSTRACTION Provider, Abstract from Last 3 Months Family History Relation Name Status Comments Brother Father Mother Sister Son 1 Alive Son 2 Alive Social History Tobacco Use Types Packs/Day Years Used Date Smoking Tobacco: Never Tobacco Cessation:Counseling Given: Not Answered Alcohol Use Standard Drinks/Week Comments Yes 0 (1 standard drink = 0.6 oz pur e alcohol) rare Comments Unknown Sex and Gender Information Value Date Recorded Sex Assigned at Not on file Legal Sex Female 9:46 AM CDT Gender Identity Not on file Sexual Orientation Not on file Last Filed Vital Signs Vital Sign Reading Time Taken Comments Blood Pressure 136/77 09/13/2023 8:30 AM CDT Pulse 80 09/13/2023 8:30 AM CDT Temperature 36.3 ??C (97.3 ??F) 09/13/2023 8:30 AM CD T Respiratory Rate 16 09/13/2023 8:30 AM CDT Oxygen Saturation 96% 09/13/2023 8:30 AM CDT Inhaled Oxygen Concentration - - Weight 67.1 kg (148 lb) 09/13/2023 8:30 AM CDT Height 154.9 cm (5' 1 ) 08/16/2022 1:27 PM CDT Body Mass Index 27.96 08/16/2022 1:27 PM CDT Plan of Treatment Upcoming Encounters Date Type Department Care Team (Late st Contact Info) Description 03/16/2024 11:45 AM PEDIATRIC RN Office Visit [facility] Oncology and Hematology - Tom[address] [place] [address] Blas Merino MD [address] [facility] [employer] [address] [place] [address] Health Maintenance Due Date Last Done Comments DTAP/TDAP/TD VACCINES (1 - Tdap) 02/18/1964 Traditional Medicare (ACO) A nnual Wellness Visit 02/18/1963 ZOSTER VACCINE (1 of 2) 02/18/1994 RSV VACCINE (60+ or ) (1 - 1-dose 75+ series) 02/18/2019 INFLUENZA VACCINE (#1) 2023 3, 12/03/2019, 01/01/2019 COVID-19 Vaccine ( - 2023-2 5 season) 2023 07/13/2021, 04/15/2020, 03/17/2020 COLORECTAL SCREENING Discontinued 10/01/2019, 10/01/19 20 Colorectal Cancer Screening Discontinued PNEUMOCOCCAL VACCINE 65+ YEARS Completed 08/23/2020 , 08/18/2019 OSTEOPOROSIS SCREENING Completed 3, 11/19/2022, 11/18/2019, Additional history exists FIT-DNA Q 3 years Discontinued FIT/FOBT Q 1 year Discontinued Flex Sig/CT Colonography Q 5 [place] [id number] MEDICARE PART A AND B BS SUPP Care Teams Fiberglass Roller Relationship Specialty Start Date End Date Mary Acuna DO [address] [place] [phone] PCP - General Family Practice 08/16/22
--- OUTSIDE RECORDS SUMMARY | 2024-03-13 09:36 | XMS_ITS | Clinical Summary ---
Author Organization [facility] Address [address] [place] [address] Care Team Providers Care Urban Gardening Specialist Name Role Phone Mary Acuna NP Primary Care Provider [phone] Allergies Active Allergy Reactions Criticality Noted Date [...] 25 mg tabletIndications:Mixed dyslipidemia,Coronary artery disease involving ugashik coronary artery of ugashik heart without angina pectoris,Essential hypertension Take 1 [...] Date Chronic kidney disease, stage 2 (mild) Assessment & Plan (10/21/2023 11:38 AM CDT): [...] folate level. Coronary artery disease invo lving ugashik coronary artery of ugashik heart without angina pectoris 04/26/2022 Assessment & Plan (10/21/2023 11:38 AM CDT): Chronic, stability unknown Continued on aspirin, metoprolol, Xarelto, atorvastatin, and spironolactone per Cardiology Assessment & Plan (11/02/2022 12:07 PM CDT): Chronic, stability unknown Continued on aspirin, metoprolol, Xarelto, atorvastatin, and spironolactone per Cardiology Atrial fibrillation with rap id ventricular response (CMS/HCC) 02/18/2020 Assessment & Plan (10/21/2023 11:39 AM CDT): Chronic, stability unknown Continued on metoprolol and Xarelto per Cardiology Assessment & Plan (11/02/2022 12:08 PM CDT): Chronic, stability unknown Continued on metoprolol and Xarelto per Cardiology Assessment & Plan (02/18/2020 11:15 AM LEARNING SUPPORT AIDE): Overall Condition Stable and Well-controlled. Treatment: Continue Present Management Follow up in 6 months Gastroesophageal reflux disease with stricture 0 02/18/2020 Assessment & Plan (10/21/2023 11:36 AM CDT): Chronic, stable, controlled with medication Continued pantoprazole Assessment & Plan (11/02/2022 12:06 PM CDT): Chronic, stable, controlled with medication Continued pantoprazole Assessment & Plan (02/18/2020 11:15 AM LEARNING SUPPORT AIDE): Overall Condition Stable and Well-controlled. Treatment: Continue Present Management Follow up in 6 months Mixed dyslipidemia 02/18/2020 Assessment & Plan (10/21/2023 11:35 AM CDT): Chronic, stable, controlled on medication Continued on atorvastatin per Dr. Newton Assessment & Plan (11/02/2022 12:05 PM CDT): Chronic, stable, controlled on medication Continued on atorvastatin per Dr. Hernandez Assessment & Plan (02/18/2020 11:16 AM LEARNING SUPPORT AIDE): Overall Condition Stable and Well-controlled. Treatment: Continue [...] visit. Personalized Prevention Plan Services (PPPS): Immunization: [id number]: order today 08/23/20 Jinlsbl25: 08/18/19 Influenza: UTD. HepatitisB: Not Applicable. Tetanus: [...] the plan were completed as outlined by [facility]. A copy of the prevention plan was [...] visit. Personalized Prevention Plan Services (PPPS): Immunization: [id number]: order today 08/23/20 Lkprvxn30: 08/18/19 Influenza: UTD. HepatitisB: Not Applicable. Tetanus: [...] visit. Personalized Prevention Plan Services (PPPS): Immunization: Jieivzghc10: post 08/17/20 Gwqygpp53: order for today. Influenza: UTD. HepatitisB: Not [...] Aspirin use discussion. DEXA Scan: Last on 2018. Order for today. Glaucoma Screening: Recommended Annually. [...] visit. Personalized Prevention Plan Services (PPPS): Immunization: [id number]: Awaiting Records . Epmzeuu23: Awatiting Records . Influenza: UTD. HepatitisB: Not [...] test. Assessment & Plan (02/18/2020 11:15 AM LEARNING SUPPORT AIDE): Overall Condition Stable and Well-controlled. Treatment: Continue [...] week Assessment & Plan (02/18/2020 11:16 AM LEARNING SUPPORT AIDE): Recommended aggressive Lifestyle modification and weight loss [...] ng both hands with positive rheumatoid factor ([facility]) 07/24/2018 Assessment & Plan (10/21/2023 11:33 AM [...] (blood pressure recently normal when seen by managed care coordinator on 05/30/2022, great granddaughter recently , became [...] if symptoms do not resolve with treatment. 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 11/01/2022 Encounters Date Type Department Care Team Description 12/16/2023 1:50 PM LEARNING SUPPORT AIDE - 12/16/2023 11:59 PM LEARNING SUPPORT AIDE Hospital Encounter [facility] [address] [facility] [address] [place] [address] Abnormal mammogram Discharge Disposition: Discharge to home or self care from Last 3 Months Immunizations Name Administration Dates Next Due Influenza, Quad, Adjuvantate d, Intramuscular 12/16/2020 Influenza, Quadrivalent, Hig h Dose, Preservative Free, Intrr 11/01/2022,10/18/2021,12/03/2019 Influenza, Trivalent, High D ose, Split, Preservative Free, Intramuscular 10/21/2023,01/01/2019 Influenza, Unspecified 11/11/2021 Moderna SARS-CoV-2 Monovalen t Vaccination (12+ YRS) 07/13/2021,03/17/2020 Pneumococcal Conjugate PCV 13 08/18/2019 Pneumococcal Polysaccharide PPV23 08/23/2020 Surgical History Surgery Date Site/Laterality Comments REPLACEMENT TOTAL KNEE left REPLACEMENT TOTAL KNEE right JOINT REPLACEMENT CATARACT EXTRACTION 2000 LASIK 20 yrs ago Medical History Medical History Date Comments RA (rheumatoid arthritis) ([facility]) Heart attack ([facility]) S/P cardiac cath 2019 Anemia Cataract Heart disease Adhesive capsulitis of right shoulder 10/23/2021 Herpes zoster without complication 08/04/2021 Moderate episode of recurrent major depressive d isorder (HCC) 08/04/2021 Family History Medical History Relation Name Comments Diabetes Father Alfred Valdivia Heart attack Father Alfred Valdivia Hypotension Mother Relation Name Status Comments Father Alfred Valdivia Mother Social History Tobacco Use Types Packs/Day Years [...] Orientation Straight 09/30/2019 10 :54 AM CDT Obstetrics History Last Filed Vital Signs Vital Sign Reading [...] 10/21/2023 11:05 AM CDT Plan of Treatment Health Maintenance Due Date Last Done Comments DTaP/Tdap/Td Vaccine (1 - Tdap) 02/18/1956 Hepatitis B Screening 02/18/1962 Zoster Vaccine (1 of 2) 02/18/1994 Covid-19 Vaccine (5 - 2023-2 5 season) 2023 07/13/2021, 12/16/2020, 04/15/2020, Additional history exists Depression Screening 10/20/2024 10/21/2023, 11/01/2022, 11/01/2022, Additional history exists Fall Risk Assessment 10/20/2024 10/21/2023, 11/01/2022, 09/11/2022, Additional history exists Well Visit 65+ 10/20/2024 10/21/2023, 10/13, 08/24/2021, Additional history exists Osteoporosis Screening-Bone Density Scan 11/19/2024 11/19/2022, 11/18/2019 Colon Cancer Screening-CT Colonography Discontinued 10/01/2019 Colon Cancer Screening-Colonoscopy Discontinued 10/01/2019 Colon Cancer Screening-DNA Stool Discontinued 10/01/19, 08/26/2019 Colon Cancer Screening-FIT Discontinued 10/01/2019, Colon Cancer Screening-FOBT Discontinued 10/01/2019, 0 08/26/2019 Colon Cancer Screening-Sigmoidoscopy Discontinued 10/01/2019 Colorectal Cancer Screening Discontinued Pneumococcal vaccine 65+ Completed 08/23/2020, 0708/2019 Influenza Vaccine Completed 10/21/2023, , 11/11/2021, Additional history exists Procedures Procedure Name Priority Date/Time Associated Diagnosis Comments DIAGNOSTIC MAMMOGRAM RIGHT W MACKENZIE Schedule Routine, Read Routine (OP Routine) 12/16/2023 2:05 PM LEARNING SUPPORT AIDE Abnormal mammogram DEXA AXIAL SKELETON BONE DENSITY 1 OR MORE SITES Schedule Routine, Read Routine (OP Routine) 11/19/2022 1:09 PM CDT Osteopenia of right hip COLONOSCOPY Routine 10/01/2019 from Last 3 Months or Most Recently Relevant to Health Maintenance Results * Diagnostic Mammogram Right W Mackenzie (12/16/2023 2:05 PM LEARNING SUPPORT AIDE) Anatomical Region Laterality Modality Breast Right Mammography 12/16/2023 2:09 PM LEARNING SUPPORT AIDE Narrative 12/16/2023 2:12 PM LEARNING SUPPORT AIDE EXAM DESCRIPTION: DIAGNOSTIC MAMMOGRAM RIGHT W MACKENZIE REASON FOR STUDY: 78-year-old female recalled from [...] PM T: ??12/16/2023 2:12 PM Report ID: [id number] Reading Location: ??MAMMMHE us Mary Acuna NP [...] taken/is taking Boniva, vitamin-D and calcium. ? Supervisor Contact Lens/Model: [employer] A (S/N [id number]) CLINICAL INFORMATION: Current height: ??61 ??inches ? [...] Electronically signed by ??Damaris Schneider M.D. TW: TW D: ??11/20/2022 5:17 AM T: ??11/20/2022 5:17 AM Report ID: [id number] Reading Location: ??[id number] Procedure Note Damaris Schneider MD - 11/20/2022 EXAM DESCRIPTION: DEXA AXIAL SKELETON BONE DENSITY 1 OR MORE SITES REASON FOR STUDY: 77 y/o year old F with given history of: osteopenia left hip/femoral neck. Postmenopausal status. Patient has a history of rheumatoid arthritis. Patient has taken/is taking Boniva, vitamin-D and calcium. Supervisor Contact Lens/Model: [employer] A (S/N [id number]) CLINICAL INFORMATION: Current height: 61 inches Maximum [...] Damaris Schneider M.D. TW: TASHA Report ID: [id number] Reading Location: [place] [address] us Mary Acuna NP IMG DXA PROCEDURES Final Result * Colonoscopy (10/01/2019) Anatomical Region Laterality Modality Other us Historical Provider ENDOSCOPY PROCEDURES Phylicia l Result from Last 3 Months or Most Recently Relevant to Health Maintenance Insurance [place] [address] MEDICARE [facility] MEDICARE SUPPLEMENT Care Teams Urban Gardening Specialist Relationship Specialty Start Date End Date Mary Acuna NP [address] [place] [address] PCP - General Family Practice 04/24/22
--- OUTSIDE RECORDS SUMMARY | 2024-03-13 09:36 | XMS_ITS | Encounter Summary ---
Author Organization [facility] Address [address] [place] [address] Care Team Providers Care Java Mobile Developer Name Role Phone Mary Acuna Primary Care Provider [phone] Encounter Details Date Type Department Care Team (Late st Contact Info) Description 03/11/2024 External Device Data STL ABSTRACTION Provider, Abstract NO ADDRESS ON FILE Social History Tobacco Use Types Packs/Day Years [...] on file documented as of this encounter Plan of Treatment Upcoming Encounters Date Type Department Care Team (Late st Contact Info) Description 03/16/2024 11:45 AM GANG WORKER Office Visit [facility] [place] [facility] Oncology and Hematology - Tomás [address] [facility] [address] [place] [address] [place] [address] [place] [address] [address] [place] [address] documented as of this encounter Visit Diagnoses Not on filedocumented in this encounter Care Teams Java Mobile Developer Relationship Specialty Start Date End Date Mary Acuna DO [address] [place] [address] PCP - General Family Practice 08/16/22 documented as of this encounter
[2024-03-13 11:20] LABS: Basophils Percent Auto 0.6 % (0.2-1.2); Eosinophils Absolute Auto 0.3 K/mm3 (0-0.3); Eosinophils Percent Auto 5.6 % (0-4.4); Hematocrit 41.3 % (37.0-47.0); Hemoglobin 12.8 g/dL (12.0-15.0); Immature Granulocyte Absolute 0.01 K/mm3 (0.00-0.031); Immature Granulocyte Percent A 0.2 % (0-0.5); Lymphocytes Percent Auto 27.2 % (18.3-44.2); Mean Corpuscular Volume 96.9 fl (80-100); Monocytes Absolute Auto 0.6 K/mm3 (0.1-0.6); Monocytes Percent Auto 11.1 % (2.6-8.5); Neutrophils Absolute Auto 2.9 K/mm3 (1.3-6.7); Neutrophils Percent Auto 55.3 % (45.5-73.1); Platelet Count Result 171 k/mm3 (150-375); Red Blood Count 4.26 M/mm3 (4.2-5.4); Red Cell Distribution Width 13.5 % (11.5-14.5); White Blood Count 5.2 K/mm3 (4.5-10.0)
[2024-03-13 11:41] LABS: Iron 91 ug/dL (37-170)
[2024-03-13 11:54] LABS: Percent Iron Saturation 27 % (20-50)
[2024-03-13 12:32] LABS: Folic Acid 9.7 ng/mL (2.76->20); Vitamin B12 > 1000.0 pg/mL (239-931)
== END 2024-03-13 09:18 | disposition home or self-care (01) ==
PROVIDERS: PCP Family Medicine; Visit Provider Internal Medicine Hematology & Oncology
DX: D64.9 Anemia, unspecified (principal)
CPT/HCPCS: 36415; 82607; 82728; 82746; 83540; 83550; 85025

== ENCOUNTER 2024-04-13 11:32 | Outpatient (CLI) | payer MEDICARE, SELFPAY ==
[2024-04-13 11:58] LABS: Basophils Absolute Auto 0.1 K/mm3 (0.0-0.1); Basophils Percent Auto 1.1 % (0.2-1.2); Eosinophils Absolute Auto 0.2 K/mm3 (0-0.3); Eosinophils Percent Auto 3.9 % (0-4.4); Hematocrit 39.1 % (37.0-47.0); Hemoglobin 12.1 g/dL (12.0-15.0); Immature Granulocyte Absolute 0.01 K/mm3 (0.00-0.031); Immature Granulocyte Percent A 0.2 % (0-0.5); Lymphocytes Absolute Auto 1.59 K/mm3 (0.9-3.2); Lymphocytes Percent Auto 28.4 % (18.3-44.2); Mean Corpuscular HGB Conc 30.9 g/dl (32-36); Mean Corpuscular Hemoglobin 29.4 pg (26-34); Mean Corpuscular Volume 94.9 fl (80-100); Mean Platelet Volume 10.7 fl (7.4-10.4); Monocytes Absolute Auto 0.6 K/mm3 (0.1-0.6); Monocytes Percent Auto 11.4 % (2.6-8.5); Neutrophils Absolute Auto 3.1 K/mm3 (1.3-6.7); Platelet Count Result 229 k/mm3 (150-375); Red Blood Count 4.12 M/mm3 (4.2-5.4); Red Cell Distribution Width 13.6 % (11.5-14.5); White Blood Count 5.6 K/mm3 (4.5-10.0)
[2024-04-13 12:02] LABS: Add Urine Microscopic? YES; Appearance Urine Cloudy (Clear); Bacteria Urine Rare /hpf; Bilirubin Urine Negative (Negative); Blood Urine Trace (Negative); Color Urine Yellow (Yellow); Glucose Urine UA Negative (Negative); Ketones Urine Negative (Negative); Leukocyte Esterase Ur 1+ LEU/UL (Negative); Nitrate Urine Negative (Negative); Non Pathogenic Casts 0-2; Protein Urine Negative (Negative); RBC Urine 0-2 /hpf (0-2); Specific Grav Ur 1.017 (1.001-1.035); Squamous Epithelial Cell Urine Moderate /hpf (Few); Urobilinogen Urine 0.2 mg/dL (<2.0); pH Urine 5.5 (5.0-9.0)
[2024-04-13 12:09] LABS: Alanine Aminotransferase 30 U/L (6-35); Albumin Level 4.3 g/dL (3.5-5.1); Alkaline Phosphatase 70 U/L (38-126); Anion Gap 9 mmol/L (4-12); Aspartate Amino Transferase 31 U/L (14-36); Bilirubin,Total 0.4 mg/dL (0.2-1.3); Blood Urea Nitrogen 19 mg/dL (7-17); CRP 0.8 mg/dL (<1.0); Calcium 9.9 mg/dL (8.4-10.2); Carbon Dioxide 27 mmol/L (22-30); Chloride 104 mmol/L (98-107); Estimated Glomerular Filt Rate > 60; Glucose 100 mg/dL (65-110); Potassium 5.2 mmol/L (3.4-5.0); Sodium 140 mmol/L (137-145)
[2024-04-13 12:43] LABS: Erythrocyte Sedimentation Rate 105 mm/hr (0-20)
== END 2024-04-13 11:33 | disposition home or self-care (01) ==
LOC: ANHLAB 11:33
PROVIDERS: PCP Family Medicine; Visit Provider Internal Medicine
DX: M06.89 Other specified rheumatoid arthritis, multiple sites (principal)
CPT/HCPCS: 36415; 80053; 81001; 85025; 85652; 86140

== ENCOUNTER 2024-09-02 09:49 | Outpatient (CLI) | payer MEDICARE, SELFPAY ==
--- OUTSIDE RECORDS SUMMARY | 2024-09-02 09:54 | XMS_ITS | Encounter Summary ---
Author Organization [facility] Address [address] [facility] [place] [address] Phone Care Team Providers Care Office Services Clerk Name Role Phone Rahul Mazariegos MD Primary Care Provider [phone] Mary Acuna NP Primary Care Provider [phone] Encounter Details Date Type Department Care Team (Late st Contact Info) Description 08/31/2021 Orders Only [facility] [address] [facility] [place] [address] Scanning, Provider Social History Tobacco [...] documented as of this encounter Care Teams Office Services Clerk Relationship Specialty Start Date End Date Rahul Mazariegos MD PCP - General Family Medicine 08/23/20 04/23/22 Mary Acuna NP [address] [place] [address] PCP - General Family Practice 04/24/22 documented as of this encounter
--- OUTSIDE RECORDS SUMMARY | 2024-09-02 09:54 | XMS_ITS | Clinical Summary ---
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 Gender Identity Not on file Sexual Orientation Not on file Plan of Treatment Health Maintenance Due Date Last Done Comments DTaP, Tdap and Td Vaccines ( 1 - Tdap) 02/18/1964 Zoster Vaccines (1 of 2) 02/18/1994 Dexa Scan (General) 02/18/2009 RSV Immunization or 60+ Years (1 - 1-dose 75+ series) 02/18/2019 COVID-19 Vaccine (4 - 2023-2 5 season) 2023 07/13/2021, 04/15/2020, 03/14/2020 Pneumococcal Vaccine: 50+ Years Completed 08/23/2020, 08/18/2019 Meningococcal B Vaccine Aged Out No l onger eligible based on patient's age to complete this topic Meningococcal Vaccine Aged Out No peace gordon eligible based on patient's age to complete this topic RSV Immunizations Under 20 Months Aged Out No longer eligible b ased on patient's age to complete this topic
--- OUTSIDE RECORDS SUMMARY | 2024-09-02 09:55 | XMS_ITS | Patient Health Record ---
Author Organization 1 OF [facility] Address [address] [place] [address] Care Team Providers Care Movie Stunt Performer Name Role Phone Delilah Franklin Rahul Primary Care Provider Unavailab Rula Porter Unavailable [phone] Allergies Allergen (clinical drug ingredient) Drug/Non Drug Allergy documented on EMR Reaction Allergy Type Onset Date Status codeine Codeine (uncoded) Unknown Allergy Ac tive Reason For Referral No Information Medications Medication SIG (Take, Route, Fr equency, Duration) Notes Start Date End Date Status Calcium Citrate Acti ve Omeprazole Active Tylenol Arthritis Pain Active sulfaSALAzine Active Vitamin D Active Furosemide Active Amiodarone HCl Activ e Aspirin Active Lisinopril Active B6 Natural Active Metoprolol Succinate ER Active Feosol Active Brilinta Active Celecoxib Active Atorvastatin Calcium Active Boniva Active Spironolactone Activ e Social History Tobacco Use: Social History Observation Description Date Details (start date - stop date) Never Smoker NA - NA Tobacco Use/Smoking Question Answer Notes Are you a nonsmoker Problems Problem Type SNOMED Code ICD Code Onset Dates Problem Status W/U Status Risk Notes Problem Chronic kidney disease stage 1 (928592365) Chronic kidney disease, stage 1 (N18.1) Active confirmed Problem Leg length discrepancy (M21.70) Active confirmed Vital Signs Height 61 in 07/30/2024 Weight 155 lbs 07/30/2024 BMI 29.28 kg/m2 07/30/2024 Encounters Encounter Location Date Provider Diagnosis 1 OF [facility] [address] [place] [address] 11/04/2023 Rula Scott Onychogryphosis L60. 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 01/16/2024 Onychogryphosis (ICD-10 - L60.2) Considering the associated comorbidities and physical exam findings today, this patient is at substantial risk of developing serious foot complications in the absence of regular and professional palliative foot care. 03/19/2024 Onychogryphosis (ICD-10 - L60.2) Considering the associated comorbidities and physical exam findings today, this patient is at substantial risk of developing serious foot complications in the absence of regular and professional palliative foot care. 05/28/2024 Onychogryphosis (ICD-10 - L60.2) Considering the associated comorbidities and physical exam findings today, this patient is at substantial risk of developing serious foot complications in the absence of regular and professional palliative foot care. 07/30/2024 Onychogryphosis (ICD-10 - L60.2) Considering the associated comorbidities and physical exam findings today, this patient is at substantial risk of developing serious foot complications in the absence of regular and professional palliative foot care. 07/30/2024 Ingrown toenail of right foot (ICD-10 - L60.0) 03/19/2024 Ingrown toenail of right foot (ICD-10 - L60.0) 05/28/2024 Ingrown toenail of right foot (ICD-10 - L60.0) 11/04/2023 Ingrown toenail of right foot (ICD-10 - L60.0) 01/16/2024 Ingrown toenail of right foot (ICD-10 - L60.0) 11/04/2023 Onychodystrophy (ICD-10 - L60.3) 01/16/2024 Onychodystrophy (ICD-10 - L60.3) 05/28/2024 Onychodystrophy (ICD-10 - L60.3) 03/19/2024 Onychodystrophy (ICD-10 - L60.3) 07/30/2024 Onychodystrophy (ICD-10 - L60.3) 07/30/2024 Pain around toenail, left foot (ICD-10 - M79.675) 03/19/2024 Pain around toenail, left foot (ICD-10 - M79.675) 05/28/2024 Pain around toenail, left foot (ICD-10 - M79.675) 01/16/2024 Pain around toenail, left foot (ICD-10 - M79.675) 11/04/2023 Pain around toenail, left foot (ICD-10 - M79.675) 11/04/2023 Pain around toenail, right foot (ICD-10 - M79.674) 01/16/2024 Pain around toenail, right foot (ICD-10 - M79.674) 03/19/2024 Pain around toenail, right foot (ICD-10 - M79.674) 05/28/2024 Pain around toenail, right foot (ICD-10 - M79.674) 07/30/2024 Pain around toenail, right foot (ICD-10 - M79.674) Plan Of Treatment Next Appt Details Provider Name:Rula Scott, 10/08/2024 11:00:00 AM, [address] [place], [address], Insurance Providers Payer Name Payer Address Payer Phone Subscriber Number Group Number Insured Name Patient Relationship to Insured Coverage Start Date Coverage End Date Medicare [address] [facility] [place] [id number] Sloane Pal Self - patient is the insured [facility] and [facility] [address] [place] [address] [id number] high ded F Sloane Pal Self - patient is the insured Medical (General) History Medical History History ICD Code Arthritis, hypertension, high cholestero l, sciatica Surgical History Surgery Date(Month/Year) Right ankle 2000
--- OUTSIDE RECORDS SUMMARY | 2024-09-02 09:55 | XMS_ITS | Clinical Summary ---
Author Organization [facility] Address [address] [place] [address] Care Team Providers Care Extractor And Wringer Operator Name Role Phone Mary Acuna DO Primary Care Provider [phone] Allergies Active Allergy Reactions Criticality Noted Date [...] Encounters Date Type Department Care Team Description 08/27/2024 External Device Data STL ABSTRACTION Provider, Abstract 08/26/2024 External Device Data ST[facility] ABSTRACTION Provider, Abstract 08/26/2024 External Device Data ST[facility] ABSTRACTION Provider, Abstract 07/29/2024 External Device Data ST[facility] ABSTRACTION Provider, Abstract 07/29/2024 External Device Data ST[place] ABSTRACTION Provider, Abstract 07/07/2024 External Device Data ST[facility] ABSTRACTION Provider, Abstract 07/02/2024 External Device Data STL ABSTRACTION Provider, Abstract 07/01/2024 External Device Data STL ABSTRACTION Provider, Abstract [...] Sign Reading Time Taken Comments Blood Pressure 132/77 03/16/2024 11:39 AM CLEAN UP SUPERVISOR Pulse 81 03/16/2024 11:39 AM CLEAN UP SUPERVISOR Temperature 36.8 C (98.3 F) 03/16/2024 11:39 AM CLEAN UP SUPERVISOR Respiratory Rate 15 03/16/2024 11:39 AM CLEAN UP SUPERVISOR Oxygen Saturation 95% 03/16/2024 11:39 AM CLEAN UP SUPERVISOR Inhaled Oxygen Concentration - - Weight 71.5 kg (157 lb 9.6 oz) 03/16/2024 11:39 AM CLEAN UP SUPERVISOR Height 154.9 cm (5' 1) 08/16/2022 1:27 PM CDT Body Mass Index 29.78 08/16/2022 1:27 PM CDT Plan of Treatment Upcoming Encounters Date Type Department Care Team (Late st Contact Info) Description 09/14/2024 11:00 AM CDT Office Visit [facility] Oncology and Hematology - [place] [facility] [address] [place] [address] Blas Merino MD [address] [facility] [address] [place] [address] Health Maintenance Due Date Last Done Comments DTAP/TDAP/TD VACCINES (1 - Tdap) 02/18/1963 ZOSTER VACCINE (1 of 2) 02/18/1994 RSV VACCINE (60+ or ) (1 - 1-dose 75+ series) 02/18/2019 COVID-19 Vaccine (4 - 2023-2 5 season) 2023 07/13/2021, 04/15/2020, 03/17/2020 INFLUENZA VACCINE (#1) 2024 4, 11/01/2022, 10/18/2021, Additional history exists OSTEOPOROSIS SCREENING 11/20/2027 3, 11/19/2022, 11/18/2019, Additional history exists COLORECTAL SCREENING Discontinued 10/01/2019, 10/01/19 20 Colorectal Cancer Screening Discontinued PNEUMOCOCCAL VACCINE 50+ YEARS Completed 08/23/2020 , 08/18/2019 FIT-DNA Q 3 years Discontinued FIT/FOBT Q 1 year Discontinued Flex Sig/CT Colonography Q 5 years Discontinued Insurance MEDICARE PART A AND B BCBS SUPP Care Teams Extractor And Wringer Operator Relationship Specialty Start Date End Date Mary Acuna DO [address] [place] [address] PCP - General Family Practice 08/16/22
--- OUTSIDE RECORDS SUMMARY | 2024-09-02 09:55 | XMS_ITS ---
Author Organization 1 OF [facility] Address [address] [place] [address] Care Team Providers Care Doughnut Dough Mixer Name Role Phone Rahul Mazariegos M.D. Primary Care Provider Unavailab Rula Porter Unavailable [phone] REASON FOR VISIT High Risk Foot care Encounters Encounter Location Date Provider Diagnosis 1 OF [facility] [address] [place] [address] 08/06/2024 Rula Scott Plan Of Treatment Next Appt Details Provider Name:Rula Baiga, 10/08/2024 11:00:00 AM, [address], [place], [address], Progress Notes * Allen PALOB:1945 ([age] yo F)Acc No.[id number]:08/06/2024 Progress Note Patient: Sloane VIEIRA Provider: Paul Scott DPM :1945 A ge:79 Y S ex:Female Date:08/06/2024 Address:[address] [place], [place] Pcp:Rahul Mazariegos M.D. Subjective: * Chief Complaints: * 1 . High Risk Foot care. * Medical History: Objective: * Vitals: Assessment: Plan: * Treatment: * Images: * Electronic signature of Farheen Scott DPM on 09/02/2024 at 09:54 AM CDT Sign off status: Pending * Provider: Paul Scott DPM Date: 0 08/06/2024 Generated for Sherine alejandre/John/Lilly on: 0 09/02/2024 09:54 AM CDT
--- OUTSIDE RECORDS SUMMARY | 2024-09-02 09:55 | XMS_ITS | Referral Summary ---
Author Organization [facility] Address [address] [place] [address] Care Team Providers Care Business Controller Name Role Phone Mary Acuna NP Primary Care Provider [phone] Encounters Date Type Department Care Team Description 07/20/2024 Telephone [facility] [place] [address] [place] [address] Mary Acuna NP Medical Question/Miscellaneous 07/14/2024 6:22 AM CDT - 07/14/2024 8:38 AM T Emergency [facility] Emergency Department [address] [place] [address] Junaid Gee DO Arthritis of right hip (Primary Dx) Discharge Disposition: Discharge to home or self care from Last 3 Months Allergies Active Allergy Reactions Criticality Noted Date Comments Codeine Itching,Stomach upset Low 08/31/2019 Medications ferrous sulfate 325 mg (65 mg of elemental iron) tabletIndications:Iron Deficiency Anemia Take 1 tablet (325 mg total) by mouth daily with breakfast 07/25/19 19 Active ibandronate (BONIVA) 150 mg tablet Take 1 [...] (81 mg total) by mouth daily Active leflunomide (ARAVA) 20 mg tabletIndications:Rheum atoid Arthritis Take 1 tablet (20 mg total) by mouth daily Active cyanocobalamin (Vitamin B-12) 1,000 mcg tabletIndications:Preve ntion of Vitamin B12 Deficiency Take 1 tablet (1,000 mcg total) by mouth daily Active pantoprazole DR (PROTONIX) 40 mg EC tablet TAKE 1 TABLET BY MOUTH DAILY 90 tablet 3 10/29/19 24 Active Xarelto 20 mg tablet TAKE 1 TABLET BY MOUTH DAILY 90 tablet 3 11/29/19 24 Active metoprolol XL (TOPROL-XL) 25 mg extended release tablet Take 1 tablet (25 mg total) by mouth daily 90 tablet 3 03/26/19 25 Active atorvastatin (LIPITOR) 40 mg tabletIndications:Pure hypercholesterolemia Take 1 tablet (40 mg total) by mouth daily 90 tablet 3 03/26/19 25 Active losartan (COZAAR) 25 mg tabletIndications:Mixed dyslipidemia,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,Essential hypertension Take 1 tablet (25 mg total) by mouth daily 90 tablet 3 03/26/19 25 Active spironolactone (ALDACTONE) 25 mg tablet TAKE 1 TABLET BY MOUTH DAILY 90 tablet 1 06/24/19 25 Active cyclobenzaprine (FLEXERIL) 10 mg tablet Take 1 tablet (10 mg total) by mouth 3 (three) times a day as needed for muscle spasms 15 tablet 07/15/19 25 Active Active Problems Problem Noted Date Diagnosed Date Need for vaccination 04/20/2024 Assessment & Plan (04/20/2024 11:00 AM CDT): Discussed screening/vaccination in depth and patient understands all risk and benefits associated with proposed therapies and currently declines, has been encouraged to call if changes mind. Chronic kidney disease, stage 2 (mild) Assessment & Plan (04/20/2024 10:56 AM CDT): Stable Previously seen by nephrology, released from care Will monitor for stability Assessment & Plan (10/21/2023 11:38 AM CDT): [...] mammogram. Anemia, unspecified 04/27/2022 Assessment & Plan (04/20/2024 10:55 AM CDT): Controlled Continued on ferrous sulfate and B12 Assessment & Plan (10/21/2023 11:39 AM CDT): [...] folate level. 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 artery of grand traverse heart without angina pectoris 04/26/2022 Assessment & Plan (04/20/2024 10:57 AM CDT): Continued on aspirin, metoprolol, losartan, Xarelto, atorvastatin, and spironolactone per Cardiology Assessment & Plan (10/21/2023 11:38 AM CDT): Chronic, stability unknown Continued on aspirin, metoprolol, Xarelto, atorvastatin, and spironolactone per Cardiology Assessment & Plan (11/02/2022 12:07 PM CDT): Chronic, stability unknown Continued on aspirin, metoprolol, Xarelto, atorvastatin, and spironolactone per Cardiology Atrial fibrillation with rapid ventricular respo nse 02/18/2020 Assessment & Plan (04/20/2024 10:53 AM CDT): Controlled Continued on metoprolol, ASA, and Xarelto per Cardiology Assessment & Plan (10/21/2023 11:39 AM CDT): Chronic, stability unknown Continued on metoprolol and Xarelto per Cardiology Assessment & Plan (11/02/2022 12:08 PM CDT): Chronic, stability unknown Continued on metoprolol and Xarelto per Cardiology Assessment & Plan (02/18/2020 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 Treatment: Continue Present Management Follow up in 6 months Mixed dyslipidemia 02/18/2020 Assessment & Plan (04/20/2024 10:54 AM CDT): Controlled Continued on atorvastatin per Dr. Newton Encouraged to incorporate omega 3s into diet Assessment & Plan (10/21/2023 11:35 AM CDT): Chronic, stable, controlled on medication Continued on atorvastatin per Dr. Newton Assessment & Plan (11/02/2022 12:05 PM CDT): Chronic, stable, controlled on medication Continued on atorvastatin per Dr. 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 Treatment: Continue [...] visit. Personalized Prevention Plan Services (PPPS): Immunization: [id number]: order today 08/23/20 [id number]: 08/18/19 Influenza: UTD. HepatitisB: Not Applicable. Tetanus: [...] the plan were completed as outlined by [facility]. A copy of the prevention plan [...] visit. Personalized Prevention Plan Services (PPPS): Immunization: [id number]: order today 08/23/20 [id number]: 08/18/19 Influenza: UTD. HepatitisB: Not Applicable. Tetanus: [...] the plan were completed as outlined by [facility]. A copy of the prevention plan [...] visit. Personalized Prevention Plan Services (PPPS): Immunization: [id number]: post 08/17/20 [id number]: order for today. Influenza: UTD. HepatitisB: Not [...] visit. Personalized Prevention Plan Services (PPPS): Immunization: [id number]: Awaiting Records . Cqdtccy54: Awatiting Records . Influenza: UTD. HepatitisB: Not [...] Aspirin use discussion. DEXA Scan: Performed on 2018 . and Next Due: 2019 . Glaucoma Screening: Recommended Annually. Audio Screen ordered? No Diabetes: Not Applicable. Annual Labs: Ordered For Today. Abdominal Aortic Aneurysm Screening: Not Applicable. HIV Screening: Not Applicable. Smoking cessation Counselling: Not Applicable. Subsequent Annual Wellness Visit: Annually Osteopenia 07/24/2018 Assessment & Plan (04/20/2024 10:57 AM CDT): Uncontrolled, stable Continued on Boniva and vitamin-D supplement Assessment & Plan (10/21/2023 11:34 AM CDT): Chronic, stable Continued on Boniva and vitamin-D supplement Will monitor for stability Assessment & Plan (11/02/2022 12:05 PM CDT): Chronic, stability unknown Continued on Boniva and vitamin-D supplement Bone density test scheduled for November 2022 Assessment & Plan (06/11/2022 2:37 PM CDT): Chronic, stability unknown-ordered bone density test. 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 Treatment: Continue Present Management Follow up in 6 months Class 1 obesity due to exces s calories with serious comorbidity and body mass index (BMI) of 30.0 to 30.9 in adult 07/24/2018 Assessment & Plan (04/20/2024 11:04 AM CDT): Uncontrolled, worsened Encouraged to: Make healthy food choices, limiting intake of concentrated sweets, cholesterol, and saturated fat Monitor daily caloric intake and portion sizes Exercise most days of the week for a goal of at least 150 minutes of exercise per week Assessment & Plan (10/21/2023 11:33 AM CDT): [...] week Assessment & Plan (02/18/2020 11:16 AM CORE MACHINE OPERATOR): Recommended aggressive Lifestyle modification and weight loss [...] ng both hands with positive rheumatoid factor 07/24/2018 Assessment & Plan (04/20/2024 10:53 AM CDT): Controlled, affecting both hands Continued on Arava per Rheumatology Encouraged to follow-up with Rheumatology as recommended Assessment & Plan (10/21/2023 11:33 AM CDT): [...] (blood pressure recently normal when seen by production trainer on 05/30/2022, great granddaughter recently , became [...] symptoms do not resolve with treatment. 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 11/01/2022 Immunizations Immunization Administration Dates Next Due Influenza, Quad, Adjuvantate d, Intramuscular 12/16/2020 Influenza, Quadrivalent, Hig h Dose, Preservative Free, Intrr 11/01/2022,10/18/2021,12/03/2019 Influenza, Trivalent, High D ose, Split, Preservative Free, Intramuscular 10/21/2023,01/01/2019 Influenza, Unspecified 11/11/2021 Moderna SARS-CoV-2 Monovalen t Vaccination (12+ YRS) 07/13/2021,03/17/2020 Pneumococcal Conjugate PCV 13 08/18/2019 Pneumococcal Polysaccharide PPV23 08/23/2020 RSV Vaccine, Pref, Recombina nt, Subunit, Adjuvanted, PF, IM (Arexvy) 12/28/2023 Social History Tobacco Use Types Packs/Day Years [...] making you feel afraid or unsafe? Denies 07/14/2024 Comments No Sex and Gender Information Value Date Recorded Sex Assigned at Not on file Legal Sex Female 3:45 PM CDT Gender Identity Female 09/30/2019 10:54 AM CDT Sexual Orientation Straight 09/30/2019 10 :54 AM CDT Last Filed Vital Signs Vital Sign Reading Time Taken Comments Blood Pressure 133/81 07/14/2024 8:30 AM CDT Pulse 88 07/14/2024 8:05 AM CDT Temperature 37.3 C (99.2 F) 07/14/2024 6:25 AM CDT Respiratory Rate 20 07/14/2024 6:25 AM CDT Oxygen Saturation 98% 07/14/2024 8:05 AM CDT Inhaled Oxygen Concentration - - Weight 75.4 kg (166 lb 3.6 oz) 07/14/2024 6:27 A M CDT Height 153 cm (5' 0.24) 07/14/2024 6:25 AM CDT Body Mass Index 32.21 07/14/2024 6:25 AM CDT Plan of Treatment Not on file Procedures Procedure Name Priority Date/Time Associated Diagnosis Comments XR HIP RIGHT 2 OR 3 VIEWS ED 07/14/2024 6:53 AM CDT STOOL DNA COLOGUARD Routine 05/14/2024 2:30 PM CDT Colon cancer screening DEXA AXIAL SKELETON BONE DENSITY 1 OR MORE SITES Schedule Routine, Read Routine (OP Routine) 11/19/2022 1:09 PM CDT Osteopenia of right hip COLONOSCOPY Routine 10/01/2019 from Last 3 Months or Most Recently Relevant to Health Maintenance Results * XR Hip Right 2 or 3 Views (07/14/2024 6:53 AM CDT) Anatomical Region Laterality Modality Lower Extremities, Hip, Pelvis Right C omputed Radiography 07/14/2024 7:14 AM CDT Narrative 07/14/2024 7:17 AM CDT EXAM DESCRIPTION: XR HIP RIGHT 2 OR 3 VIEWS REASON FOR STUDY: pain Pt states hip pain after getting off a bus 07/13/24 TECHNIQUE: AP and frogleg lateral radiographic view(s) of the right hip . COMPARISON: CT 11/17/2021 FINDINGS: BONES/JOINTS: There is severe osteoarthritis within the right hip, with joint space narrowing and marginal osteophyte formation of both the femoral head and acetabulum. There is no acute fracture or dislocation. The right pubic rami do appear intact. There is osteoarthritis of the visualized portion of the right SI joint. Scratch SOFT TISSUES: No focal soft tissue abnormality. IMPRESSION: Severe osteoarthritis. No acute fracture or dislocation. CT can be considered if occult fracture remains of concern clinically THIS IS AN ELECTRONICALLY VERIFIED FINAL REPORT 07/14/2024 7:17 AM - Electronically signed by Damaris Schneider M.D. TW: TASHA Report ID: [id number] Reading Location: [id number] Procedure Note Damaris Schneider MD - 07/14/2024 EXAM DESCRIPTION: XR HIP RIGHT 2 OR 3 VIEWS REASON FOR STUDY: pain Pt states hip pain after getting off a bus 07/13/24 TECHNIQUE: AP and frogleg lateral radiographic view(s) of the right hip. COMPARISON: CT 11/17/2021 FINDINGS: BONES/JOINTS: There is severe osteoarthritis within the righthip, with joint space narrowing and marginal osteophyte formation of both the femoral head and acetabulum. There is no acute fracture or dislocation.The right pubic rami do appear intact. There is osteoarthritis of thevisualized portion of the right SI joint. Scratch SOFT TISSUES: No focal soft tissue abnormality. IMPRESSION: Severe osteoarthritis. No acute fracture or dislocation. CTcan be considered if occult fracture remains of concern clinically THIS IS AN ELECTRONICALLY VERIFIED FINAL REPORT 07/14/2024 7:17 AM - Electronically signed by Damaris Schneider M.D. TW: TASHA Report ID: [id number] Reading Location: [id number] us Junaid Gee DO IMG XR PROCEDURES Final Res ult * Stool DNA - Cologuard (05/14/2024 2:30 PM CDT) [facility] Stool DNA - Cologuard Negative Negative [email or web address] (CLIA #:[id number]) Comment: The Cologuard Plus test was performed on this specimen. NEGATIVE TEST RESULT. A negative (normal) Cologuard Plus result means the patient has a [id number] chance of having colorectal cancer (CRC) or advanced precancer (polyps or lesions that could become cancer). Negative is the normal value (reference range) for this assay. Guidelines recommend screening again 3 years after a negative Cologuard Plus result. Continued screening increases the chance of finding CRC early or preventing it entirely. A clinical validation study showed the Cologuard Plus test is effective at ruling out CRC. Out of every 10,000 patients testing negative, approximately 2 will be falsely reassured that they do not have CRC, and out of every 100 patients testing negative, approximately 7 patients will be falsely reassured they do not have advanced precancer. TEST DESCRIPTION: The Cologuard Plus test is a multi-target stool DNA (mt-sDNA) test that analyzes DNA and hemoglobin biomarkers in stool. It uses a proprietary algorithm to qualitatively detect CRC and advanced precancer. It is FDA-approved and indicated for use in adults 45 years or older at average risk for CRC. A positive (abnormal) result should be followed by a colonoscopy. Patients with a negative (normal) result should screen again in 3 years. False positive and false negative results may occur. The USPSTF recommends the Cologuard test as a CRC screening option. Their modeling estimates that screening with the test every 3 years from ages 45-85 could prevent up to 73% of CRC and avoid up to 85% of CRC deaths. A 18,911-patient clinical trial found the Cologuard Plus test effectively detects CRC and precancer. The study found the test was 95% sensitive for CRC, 43% sensitive for advanced precancer, and had a 91% specificity (Cologuard Plus Clinician Brochure. [email or web address] [place], [place].). Visit [email or web address] for more test information, references, warnings, and precautions. Stool 05/14/2024 2:30 PM CDT 05/15/2024 9:45 AM CDT us Mary Acuna NP LAB BODY FLUIDS AND STOOLS ORDER HEATEHR Final Result [employer] (CLIA #:[id number]) [address] [place] [id number] * Dexa Axial Skeleton Bone Density 1 [...] has taken/is taking Boniva, vitamin-D and calcium. 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 FRAX is a World Health Organization validated fracture risk assessment tool that calculates a person's 10 year probability of a major osteoporosis related fracture and hip fracture. According to the National Osteoporosis Foundation guidelines, postmenopausal [...] Electronically signed by Damaris Schneider M.D. TW: TW Report ID: [id number] Reading Location: [place] [id number] Procedure Note Damaris Schneider MD - 11/20/2022 EXAM DESCRIPTION: DEXA AXIAL SKELETON BONE DENSITY 1 OR MORE SITES REASON FOR STUDY: 77 y/o year old F with given history of: osteopenia left hip/femoral neck. Postmenopausal status. Patient has a history of rheumatoid arthritis. Patient has taken/is taking Boniva, vitamin-D and calcium. 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 TW: TASHA Report ID: [id number] Reading Location: [place] [id number] Mary Acuna NP IMG DXA PROCEDURES Final Result * Colonoscopy (10/01/2019) Anatomical Region Laterality Modality Other Historical Provider ENDOSCOPY PROCEDURES Phylicia l Result from Last 3 Months or Most Recently Relevant to Health Maintenance [place] [address] MEDICARE [facility] MEDICARE [facility] MEDICARE SUPPLEMENT Care Teams Business Controller Relationship Specialty Start Date End Date Mary Acuna NP [address] [place] [address] PCP - General Family Practice 04/24/22
--- OUTSIDE RECORDS SUMMARY | 2024-09-02 09:55 | XMS_ITS | Clinical Summary ---
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 Chronic kidney disease, stage 2 (mild) 3 Assessment & Plan (04/20/2024 10:56 AM CDT): [...] folate level. Coronary artery disease invo lving duckwater coronary artery of duckwater heart without angina pectoris 04/26/2022 Assessment & [...] Cardiology Assessment & Plan (02/18/2020 11:15 AM JOURNEYMAN GLAZIER): Overall Condition Stable and Well-controlled. Treatment: Continue [...] pantoprazole Assessment & Plan (02/18/2020 11:15 AM JOURNEYMAN GLAZIER): Overall Condition Stable and Well-controlled. Treatment: Continue [...] Hernandez Assessment & Plan (02/18/2020 11:16 AM JOURNEYMAN GLAZIER): Overall Condition Stable and Well-controlled. Treatment: Continue [...] the plan were completed as outlined by [facility]. A copy of the prevention plan was [...] visit. Personalized Prevention Plan Services (PPPS): Immunization: [id number]: order today 08/23/20 [id number]: 08/18/19 Influenza: UTD. HepatitisB: Not Applicable. Tetanus: [...] visit. Personalized Prevention Plan Services (PPPS): Immunization: [id number]: order today 08/23/20 [id number]: 08/18/19 Influenza: UTD. HepatitisB: Not Applicable. Tetanus: [...] visit. Personalized Prevention Plan Services (PPPS): Immunization: [id number]: post 08/17/20 Ikuzlra47: order for today. Influenza: UTD. HepatitisB: Not [...] visit. Personalized Prevention Plan Services (PPPS): Immunization: [id number]: Awaiting Records . Kylucaq57: Awatiting Records . Influenza: UTD. HepatitisB: Not [...] test. Assessment & Plan (02/18/2020 11:15 AM JOURNEYMAN GLAZIER): Overall Condition Stable and Well-controlled. Treatment: Continue [...] week Assessment & Plan (02/18/2020 11:16 AM JOURNEYMAN GLAZIER): Recommended aggressive Lifestyle modification and weight loss [...] (blood pressure recently normal when seen by cotton puller on 05/30/2022, great granddaughter recently , became [...] if symptoms do not resolve with treatment. 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 Emergency Department [address] [place] [address] Junaid Gee DO Arthritis of right hip (Primary Dx) Discharge Disposition: Discharge to home or self care from Last 3 Months Immunizations Immunization Administration Dates Next Due Influenza, Quad, Adjuvantate d, Intramuscular 12/16/2020 Influenza, Quadrivalent, Hig h Dose, Preservative Free, Intrr 11/01/2022,10/18/2021,12/03/2019 Influenza, Trivalent, High D ose, Split, Preservative Free, Intramuscular 10/21/2023,01/01/2019 Influenza, Unspecified 11/11/2021 Moderna SARS-CoV-2 Monovalen t Vaccination (12+ YRS) 07/13/2021,03/17/2020 Pneumococcal Conjugate PCV 13 08/18/2019 Pneumococcal Polysaccharide PPV23 08/23/2020 RSV Vaccine, Pref, Recombina nt, Subunit, Adjuvanted, PF, IM (Arexvy) 12/28/2023 Surgical History Surgery Date Site/Laterality Comments REPLACEMENT TOTAL KNEE left REPLACEMENT TOTAL KNEE right JOINT REPLACEMENT CATARACT EXTRACTION 2000 LASIK 20 yrs ago Medical History Medical History Date Comments RA (rheumatoid arthritis) ([facility]) Heart attack ([facility]) S/P cardiac cath 2019 Anemia Cataract Heart disease Adhesive capsulitis of right shoulder 10/23/2021 Herpes zoster without complication 08/04/2021 Moderate episode of recurrent major depressive d isorder ([facility]) 08/04/2021 Family History Medical History Relation Name [...] 07/14/2024 6:25 AM CDT Plan of Treatment Health Maintenance Due Date Last Done Comments DTaP/Tdap/Td Vaccine (1 - Tdap) [birth year]18/1956 Zoster Vaccine (1 of 2) 02/18/1994 Covid-19 Vaccine (5 - 2023-2 5 season) 2023 07/13/2021, 12/16/2020, 04/15/2020, Additional history exists Influenza Vaccine (#1) 2024 , 11/01/2022, 11/11/2021, Additional history exists Depression Screening 10/20/2024 10/21/2023, 11/01/2022, 11/01/2022, Additional history exists Fall Risk Assessment 10/20/2024 10/21/2023, 11/01/2022, 09/11/2022, Additional history exists Well Visit 65+ 10/20/2024 10/21/2023, 10/13, 08/24/2021, Additional history exists Osteoporosis Screening-Bone Density Scan 11/19/2024 11/19/2022, 11/18/2019 Colon Cancer Screening-CT Colonography Discontinued 10/01/2019 Colon Cancer Screening-Colonoscopy Discontinued 10/01/2019 Colon Cancer Screening-Sigmoidoscopy Discontinued 10/01/2019 Pneumococcal vaccine 65+ Completed 08/23/2020, 08/2019 Hepatitis B Screening Completed 04/08/2024 Colon Cancer Screening-DNA Stool Discontinued 05/14/2024, 10/01/2019, 08/26/2019 Colon Cancer Screening-FIT Discontinued 05/14, 10/01/2019, 08/26/2019 Colon Cancer Screening-FOBT Discontinued 04/2024, 10/01/2019, 08/26/2019 Colorectal Cancer Screening Discontinued Procedures Procedure Name Priority Date/Time Associated Diagnosis [...] Damaris Schneider M.D. TW: TASHA Report ID: [id number] Reading Location: [id number] Procedure Note Damaris Schneider MD - 07/14/2024 [...] Damaris Schneider M.D. TW: TASHA Report ID: [id number] Reading Location: [id number] us Junaid Gee DO IMG XR PROCEDURES Final Res ult * Stool DNA - Cologuard (05/14/2024 2:30 PM CDT) Stool DNA - Cologuard Negative Negative [facility] (CLIA #:[id number]) Comment: The Cologuard Plus test was performed on this specimen. NEGATIVE TEST RESULT. A negative (normal) Cologuard Plus result means the patient has a jvvo-qfua-yodsycr chance of having colorectal cancer (CRC) or [...] a 91% specificity (Cologuard Plus Clinician Brochure. [email or web address]. [place], [place].). Visit [email or web address] for more test information, references, warnings, and precautions. Stool 05/14/2024 2:30 PM CDT 05/15/2024 9:45 AM CDT us Mary Acuna NP LAB BODY FLUIDS AND STOOLS ORDER HEATHER Final Result [facility] (CLIA #:[id number]) [address] [place] [address] * Dexa Axial Skeleton Bone Density 1 [...] has taken/is taking Boniva, vitamin-D and calcium. Technical Stenographer/Model: Xlumena A (S/N [id number]) CLINICAL INFORMATION: Current height: 61 inches Maximum [...] Damaris Schneider M.D. TW: TASHA Report ID: [id number] Reading Location: [id number] Procedure Note Damaris Schneider MD - 11/20/2022 EXAM DESCRIPTION: DEXA AXIAL SKELETON BONE DENSITY 1 OR MORE SITES REASON FOR STUDY: 77 y/o year old F with given history of: osteopenia left hip/femoral neck. Postmenopausal status. Patient has a history of rheumatoid arthritis. Patient has taken/is taking Boniva, vitamin-D and calcium. Technical Stenographer/Model: H[employer] Horizon A (S/N [id number]) CLINICAL INFORMATION: Current height: 61 inches Maximum [...] Damaris Schneider M.D. TW: TW Report ID: [id number] Reading Location: [place] [address] Mary Acuna NP IMG DXA PROCEDURES Final Result * Colonoscopy (10/01/2019) Anatomical Region Laterality Modality Other Historical Provider MD ENDOSCOPY PROCEDURES Phylicia l Result from Last 3 Months or Most Recently Relevant to Health [place] [address] MEDICARE [facility] MEDICARE [employer] MEDICARE SUPPLEMENT Care Teams Veterinary Physiologist Relationship Specialty Start Date End Date Mary Acuna NP [address] [place] [id number] PCP - General Family Practice 04/24/22
[2024-09-02 10:39] LABS: Hematocrit 39.0 % (37.0-47.0); Hemoglobin 12.1 g/dL (12.0-15.0); Immature Granulocyte Percent A 0.2 % (0-0.5); Lymphocytes Absolute Auto 1.23 K/mm3 (0.9-3.2); Mean Corpuscular HGB Conc 31.0 g/dl (32-36); Mean Corpuscular Hemoglobin 30.1 pg (26-34); Mean Corpuscular Volume 97.0 fl (80-100); Nucleated Red Blood Cells Absolute Auto 0.000 K/mm3 (0.0-0.012); Nucleated Red Blood Cells Perc 0.0 % (0.0-0.2); Platelet Count Result 195 k/mm3 (150-375); Red Blood Count 4.02 M/mm3 (4.2-5.4); White Blood Count 6.1 K/mm3 (4.5-10.0)
[2024-09-02 11:02] LABS: Iron 112 ug/dL (37-170)
[2024-09-02 11:03] LABS: Anion Gap 7 mmol/L (4-12); Blood Urea Nitrogen 21 mg/dL (7-17); Calcium 9.6 mg/dL (8.4-10.2); Carbon Dioxide 27 mmol/L (22-30); Chloride 102 mmol/L (98-107); Estimated Glomerular Filt Rate > 60; Glucose 94 mg/dL (65-110); Potassium 4.1 mmol/L (3.4-5.0); Sodium 136 mmol/L (137-145)
[2024-09-02 11:19] LABS: Percent Iron Saturation 35 % (20-50)
[2024-09-02 11:43] LABS: Ferritin 150.00 ng/mL (11.1-264)
[2024-09-02 12:24] LABS: Vitamin B12 > 1000.0 pg/mL (239-931)
== END 2024-09-02 09:50 | disposition home or self-care (01) ==
PROVIDERS: PCP Family Medicine; Visit Provider Internal Medicine Hematology & Oncology
DX: D64.9 Anemia, unspecified (principal)
CPT/HCPCS: 36415; 80048; 82607; 82728; 82746; 83540; 83550; 85025